=== PATIENT | female | born 1990 | race African-American/Black ===

== ENCOUNTER 2016-04-05 18:05 | Emergency (ER) | payer OTHER ==
[~2016-04-05] VITALS: Ht 177.8 cm; Wt 104.8 kg
[~2016-04-05 18:05] MED LIST: AMOXICILLIN500 MG ORAL; CYCLOBENZAPRINE10 MG ORAL; IBUPROFEN600 MG ORAL; LEVAQUIN500 MG ORAL; MEDROL4 MG ORAL; NKM
--- NOTE | 2016-04-05 18:36 | Emergency Room Report ---
History of Present Illness General Chief Complaint: Earache Present Illness HPI 25 YO Female presents to the ED c/o Pt. presents to the ED c/o Left ear pain, sore throat, nonproductive cough and dysuria x 4 day(s). denies hematuria, frequency, vaginal d/c or itching. denies hx of STI, denies abdominal pain, constipation or diarrhea. reports subjective fevers and chills, denies back pain. denies swollen tender lymph nodes. pt. states she is UTD with vaccinations. Denies numbness tingling or loss of sensation or gross motor movements of the extremities, incontinence of bowel or bladder. Denies CP, Palpitations, LOC, AMS, dizziness, Changes in Vision, Sensation, paresthesias, or a sudden severe headache. Allergies: Coded Allergies: No Known Allergies (Unverified , 06/25/15) Patient History Past Medical History: see triage record Past Surgical History: none Pertinent Family History: none Last Menstrual Period: 03/11/16 Now: No Immunizations: UTD Reviewed Nursing Documentation: PMH: Agreed, PSxH: Agreed Nursing Documentation-PMH Hx Cardiac Problems: No Hx Cancer: No Hx Gastrointestinal Problems: No Hx Neurological Problems: No Review of Systems All Other Systems: negative except mentioned in HPI Physical Exam Vital Signs Date Time Temp Pulse Resp B/P Pulse Ox O2 Delivery O2 Flow Rate FiO2 04/05/16 18:10 98.4 104 17 119/73 97 Room Air Sp02 EP Interpretation: reviewed, abnormal - tachycardic at 108 General Appearance: no apparent distress, alert, GCS 15, non-toxic Head: normocephalic, atraumatic Eyes: bilateral eye PERRL, bilateral eye normal inspection ENT: hearing grossly normal, normal pharynx, no angioedema, normal voice, pharyngeal erythema, other - left TM is erythematous and bulging. Neck: full range of motion, no meningismus, no bony tend, supple/symm/no masses Respiratory: chest non-tender, lungs clear, normal breath sounds, speaking full sentences Cardiovascular #1: regular rate, rhythm, no edema Rectal: deferred Genitourinary: normal inspection, no CVA tenderness Musculoskeletal: back normal, gait/station normal, normal range of motion, non- tender, no calf tenderness Neurologic: alert, oriented x3, responsive, motor strength/tone normal, sensory intact, speech normal Psychiatric: judgement/insight normal, memory normal, mood/affect normal, no suicidal/homicidal ideation Skin: normal color, no rash, warm/dry, well hydrated Lymphatic: no adenopathy Medical Decision Making PA Attestation Dr. Whitmore is my supervising Physician whom patient management has been discussed with. Diagnostic Impression: Primary Impression: Otitis media of left ear Qualified Codes: H66.92 - Otitis media, unspecified, left ear Additional Impressions: Acute pharyngitis Qualified Codes: J02.9 - Acute pharyngitis, unspecified Urinary tract infection Qualified Codes: N30.00 - Acute cystitis without hematuria ER Course Pt. presents to the ED c/o Left ear pain, sore throat, non productive cough and dysuria x 4 day(s) Ddx considered but are not limited to OM, OE, mastoiditis, TM perforation, FB, URI, pharyngitis, UTI, Vital signs: are WNL, pt. is afebrile H&PE are most consistent with otitis media ORDERS: -Hcg: Negative UA: evidence of UTI ED INTERVENTIONS: None required at this time. DISCHARGE: At this time pt. is stable for d/c to home. With PO ABX. Will provide printed patient care instructions, and any necessary prescriptions. Care plan and follow up instructions have been discussed with the patient prior to discharge. Labs Test 04/05/16 18:18 Urine Color Yellow Urine Appearance Slightly cloudy Urine pH 6 (4.5-8.0) Urine Specific [place] 1.010 (1.005-1.035) Urine Protein Negative (NEGATIVE) Urine Glucose (UA) Negative (NEGATIVE) Urine Ketones Negative (NEGATIVE) Urine Occult Blood Negative (NEGATIVE) Urine Nitrite Negative (NEGATIVE) Urine Bilirubin Negative (NEGATIVE) Urine Urobilinogen Normal MG/DL (0.0-1.0) Urine Leukocyte Esterase 2+ (NEGATIVE) Urine RBC 0-2 /HPF (0 - 2) Urine WBC 5-10 /HPF (0 - 2) Urine Squamous Epithelial Cells Many /LPF (NONE/OCC) Urine Bacteria Few /HPF (NONE) Urine HCG, Qualitative Negative Last Vital Signs Date Time Temp Pulse Resp B/P Pulse Ox O2 Delivery O2 Flow Rate FiO2 04/05/16 18:10 98.4 104 17 119/73 97 Room Air Disposition: HOME, SELF-CARE Condition: Stable Scripts Nitrofurantoin Monohyd/M-Cryst* (MACROBID 100 MG*) 100 Mg Capsule 100 MG ORAL EVERY 12 HOURS for 5 Days, #10 CAP Prov: Josy Fierro 04/05/16 D-Methorphan Hb/Prometh Hcl* (PROMETHAZINE-DM SYRUP*) 118 Ml Syrup 5 ML ORAL Q6H Y for For Cough, #118 ML 0 Refills Prov: Josy Fierro 04/05/16 Acetaminophen* (TYLENOL EXTRA STRENGTH*) 500 Mg Tablet 500 MG ORAL Q6H, #30 TAB 0 Refills Prov: Josy Fierro 04/05/16 Amoxicillin/Potassium Clav 875-125* (AUGMENTIN 875-125 TABLET*) 1 Each Tablet 1 TAB ORAL TWICE A DAY for 10 Days, #20 TAB Prov: Josy Fierro 04/05/16 Patient Instructions: Otitis Media, Adult, [id number], Pharyngitis, Easy-to- Read Additional Instructions: Take medications as directed. Follow up with PCP in 3-5 days Return sooner to ED if new symptoms occur, or current symptoms become worse. Josy Fierro Apr 05, 2016 18:36
[2016-04-05] MEDS ORDERED: Ketorolac 60mg Inj IM ONE ×2 (19:15)
[2016-04-05 19:19] VITALS: BP 115/70
[2016-04-05] MEDS ORDERED: Dexamethasone 4mg/ml vial IM ONE (19:30)
[2016-04-05 19:34] LABS: APPEARANCE,URINE SLIGHTLY CLOUDY; KETONES,URINE NEGATIVE (NEGATIVE); LEUKOCYTE ESTERASE ,URINE 2+ (NEGATIVE); NITRITE,URINE NEGATIVE (NEGATIVE); PH,URINE 6 (4.5-8.0); PROTEIN,URINE NEGATIVE (NEGATIVE); UROBILINOGEN,URINE NORMAL MG/DL (0.0-1.0)
[2016-04-05] MEDS ORDERED: TYLENOL EXTRA500 MG ORAL (19:34)
[2016-04-05] MEDS ORDERED: AUGMENTIN 875-1 EAC1 ORAL (19:34)
[2016-04-05] MEDS ORDERED: PROMETHAZINE-D118 ML ORAL (19:34)
[2016-04-05 19:55] LABS: BACTERIA,URINE FEW /HPF; RBC,URINE 0-2 /HPF (0 - 2); SQUAMOUS EPITHELIAL CELL,UR MANY /LPF (NONE/OCC)
[2016-04-05] MEDS ORDERED: NITROFURANTOIN100 M2 ORAL (19:58)
[2016-04-05 20:04] VITALS: BP 115/70
== END 2016-04-05 20:06 | disposition home or self-care (01) ==
LOC: EMR 18:35
DX: H66.92 Otitis media, unspecified, left ear (principal); J02.9 Acute pharyngitis, unspecified; N30.00 Acute cystitis without hematuria
CPT/HCPCS: 81003; 81025; 96372; 99284; J1100

== ENCOUNTER 2016-04-10 11:51 | Emergency (ER) | payer OTHER ==
[~2016-04-10] VITALS: Ht 177.8 cm; Wt 104.8 kg
[~2016-04-10 11:51] MED LIST changes: +AUGMENTIN 875-1 EAC1 ORAL; +NITROFURANTOIN100 M2 ORAL; +PROMETHAZINE-D118 ML ORAL; +TYLENOL EXTRA500 MG ORAL
[2016-04-10] MEDS ORDERED: AZITHROMYCIN250 MG ORAL (12:07)
[2016-04-10 12:25] VITALS: BP 120/76
[2016-04-10 12:35] VITALS: BP 120/76
--- NOTE | 2016-04-10 12:54 | Emergency Room Report ---
History of Present Illness General Chief Complaint: General Complaint Source: Patient Present Illness HPI Patient presents emergency department today complaining of sinus pain. Patient states that she develop acute onset of cough congestion over last couple weeks with worsening sinus pain on the left side and ear pain. She was seen in given amoxicillin which caused a rash. She came in for evaluation. She denies any fever chest pain shortness breath or so complains of left facial pain and congestion and sore throat. No complaint or noted. Symptoms noted to be moderate to severe. Symptoms have been going on for over 2 weeks now.No other modifying factors. No other associated signs and symptoms. No other complaints were noted. Allergies: Coded Allergies: PENICILLINS (Verified Allergy, Unknown, 04/10/16) Uncoded Allergies: AMOXILLINS (Allergy, Unknown, 04/10/16) Patient History Past Medical History: none Past Surgical History: none Pertinent Family History: none Social History: Denies: alcohol use, drug use, smoking Last Menstrual Period: 04/07/2016 Reviewed Nursing Documentation: PMH: Agreed, PSxH: Agreed Nursing Documentation-PMH Past Medical History: No Stated History Hx Cardiac Problems: No Hx Cancer: No Hx Gastrointestinal Problems: No Hx Neurological Problems: No Review of Systems All Other Systems: negative except mentioned in HPI Physical Exam Vital Signs Date Time Temp Pulse Resp B/P Pulse Ox O2 Delivery O2 Flow Rate FiO2 04/10/16 12:03 98.6 96 18 120/76 98 Room Air Sp02 EP Interpretation: reviewed, normal General Appearance: normal inspection, well appearing, no apparent distress, alert Head: atraumatic Eyes: bilateral eye normal inspection ENT: hearing grossly normal, normal voice, moist mucus membranes, pharyngeal erythema, other - sinus tenderness to percussion left face Neck: normal inspection, full range of motion, supple, no bony tend Respiratory: normal inspection, lungs clear, normal breath sounds, no respiratory distress, no retraction, no wheezing Cardiovascular #1: regular rate, rhythm, no edema Gastrointestinal: normal inspection, normal bowel sounds, non tender, soft, no guarding, no hernia Genitourinary: no CVA tenderness Musculoskeletal: normal inspection, back normal, normal range of motion Neurologic: normal inspection, alert, responsive, speech normal Psychiatric: normal inspection, judgement/insight normal, mood/affect normal Skin: normal inspection, normal color, no rash Medical Decision Making Diagnostic Impression: Primary Impression: Sinusitis, acute ER Course Patient presents emergency department today complaining of cough, nasal congestion sinus pain, and sore throat. Differential into considerations include sinusitis, allergic rhinitis, seasonal allergies just to name a few. Given patient's presentation I felt the patient likely has sinusitis. I felt the patient would benefit from antibiotics. Patient is given a prescription for antibiotics. Patient is advised to follow up with primary doctor in 2-3 days and return the emergency room for any worsening symptoms and as needed. Antibiotics were provided because this is considered to be a complex sinusitis and unlikely to viral given that has been on for close to 2 weeks. Last Vital Signs Date Time Temp Pulse Resp B/P Pulse Ox O2 Delivery O2 Flow Rate FiO2 04/10/16 12:35 98.6 96 18 120/76 98 Room Air Status: improved Disposition: HOME, SELF-CARE Condition: Stable Scripts Azithromycin* (ZITHROMAX*) 250 Mg Tablet 250 MG ORAL DAILY, #6 TAB 0 Refills Take two tablets by mouth today, then take one tablet by mouth daily for four days Prov: KOBY ZEE M.D. 04/10/16 Referrals: [facility] (PCP) Patient Instructions: Sinusitis, Adult, [id number] KOBY ZEE M.D. Apr 10, 2016 12:53
== END 2016-04-10 12:35 | disposition home or self-care (01) ==
LOC: EMR 12:05
DX: J01.90 Acute sinusitis, unspecified (principal); Z88.0 Allergy status to penicillin; Z88.1 Allergy status to other antibiotic agents
CPT/HCPCS: 99283

== ENCOUNTER 2016-06-09 23:10 | Emergency (ER) | payer OTHER ==
[~2016-06-09] VITALS: Ht 177.8 cm; Wt 103.4 kg
[~2016-06-09 23:10] MED LIST changes: +AZITHROMYCIN250 MG ORAL
[2016-06-09 23:42] VITALS: BP 137/84
[2016-06-09 23:49] LABS: APPEARANCE,URINE CLEAR; KETONES,URINE 1+ (NEGATIVE); LEUKOCYTE ESTERASE ,URINE 2+ (NEGATIVE); NITRITE,URINE NEGATIVE (NEGATIVE); PH,URINE 6 (4.5-8.0); PROTEIN,URINE 1+ (NEGATIVE); UROBILINOGEN,URINE 4 MG/DL (0.0-1.0)
[2016-06-10 00:07] LABS: BACTERIA,URINE FEW /HPF; RBC,URINE 0-2 /HPF (0 - 2); SQUAMOUS EPITHELIAL CELL,UR FEW /LPF (NONE/OCC)
--- NOTE | 2016-06-10 00:25 | Emergency Room Report ---
History of Present Illness General Chief Complaint: Pelvic Pain Source: Patient Present Illness HPI Is a 25-year-old female who has a history of ectopic was in the past. Her last menstrual period was May 07. She presents with vaginal spotting and cramping pain. Onset for last couple days. No fever or chills. No discharge. No dysuria frequency. No other complaint. Allergies: Coded Allergies: PENICILLINS (Verified Allergy, Unknown, 06/09/16) Uncoded Allergies: AMOXILLINS (Allergy, Unknown, 04/10/16) Patient History Past Medical History: see triage record, old chart reviewed Past Surgical History: other Pertinent Family History: none Social History: Denies: smoking Last Menstrual Period: may 07 : 4 Para: 1 Immunizations: other Reviewed Nursing Documentation: PMH: Agreed, PSxH: Agreed Nursing Documentation-PMH Past Medical History: No History, Except For Hx Cardiac Problems: No - Ectopic July 2015 Hx Cancer: No Hx Gastrointestinal Problems: No Hx Neurological Problems: No Review of Systems Eye: Denies: blurred vision, eye pain ENT: Denies: ear pain, nose congestion, throat swelling Respiratory: Denies: cough, shortness of breath Cardiovascular: Denies: chest pain, palpitations Gastrointestinal: Denies: abdominal pain, diarrhea, nausea, vomiting Musculoskeletal: Denies: back pain, joint pain Skin: Denies: rash Neurological: Denies: headache, numbness Endocrine: Denies: increased thirst, increased urine Hematologic/Lymphatic: Denies: easy bruising All Other Systems: negative except mentioned in HPI Physical Exam Vital Signs Date Time Temp Pulse Resp B/P Pulse Ox O2 Delivery O2 Flow Rate FiO2 06/09/16 23:20 98.2 98 16 137/84 99 Room Air vitals normal Sp02 EP Interpretation: reviewed, normal General Appearance: well appearing, no apparent distress, alert Head: normocephalic, atraumatic Eyes: bilateral eye EOMI, bilateral eye PERRL ENT: hearing grossly normal, normal pharynx Neck: full range of motion, supple, no meningismus Respiratory: chest non-tender, lungs clear, normal breath sounds Cardiovascular #1: regular rate, rhythm, no murmur Gastrointestinal: normal bowel sounds, non tender, no mass, no organomegaly, no bruit, non-distended Genitourinary: other - Pelvic exam done with female nurse as machine shop helper. External exam normal. Internal exam showed no bleeding. Minimal tenderness at the os. No cervical motion tenderness. No adnexal tenderness. Musculoskeletal: back normal, gait/station normal, normal range of motion Neurologic: alert, oriented x3 Psychiatric: mood/affect normal Skin: warm/dry Medical Decision Making Diagnostic Impression: Primary Impression: Threatened ER Course Patient presents with a threatened miscarriage. Per chef broiler or fry, very early . She's only about 3-4 weeks by ultrasound. He see what looked like a gestational sac in the uterus. Nothing in the adnexal area. Patient blood type in the past B+. We'll discharge home with reassurance and followup. CT/MRI/US Diagnostic Results CT/MRI/US Diagnostic Results : Imaging Test Ordered: Pelvic ultrasound Impression early gestational sac. As read by chef broiler or fry. Last Vital Signs Date Time Temp Pulse Resp B/P Pulse Ox O2 Delivery O2 Flow Rate FiO2 06/09/16 23:42 98.2 16 137/84 99 Room Air 06/09/16 23:20 98 Status: improved Disposition: HOME, SELF-CARE Condition: Stable Referrals: [facility] (PCP) Additional Instructions: Followup with your DrKeron in 7 days for repeat blood test and . Return for worsening symptoms. Recommend [id number] vitamins. MARIVEL GALLARDO M.D. Jun 10, 2016 00:25
[2016-06-10 00:47] VITALS: BP 118/78
[2016-06-10 01:03] LABS: ANION GAP 13 (5-15); BASOPHILS % (AUTO) 0.9 % (0.0-2.0); CALCIUM 9.1 mg/dL (8.6-10.2); CARBON DIOXIDE 22 mEQ/L (20-30); CHLORIDE 104 mEQ/L (98-107); CREATININE 0.8 mg/dL (0.5-0.9); EOSINOPHILS % (AUTO) 3.8 % (0.0-3.0); GLOMERULAR FILTRATION RATE > 60 mL/min (>60); HEMOLYSIS 73; LYMPHOCYTES % (AUTO) 40.8 % (20.0-45.0); MEAN CORPUSCULAR HEMOGLOBIN 30.8 PG (27.0-31.0); MEAN CORPUSCULAR HGB CONC 34.5 G/DL (32.0-36.0); MEAN CORPUSCULAR VOLUME 89 FL (80-99); MEAN PLATELET VOLUME 6.4 FL (6.5-10.1); MONOCYTES % (AUTO) 7.6 % (1.0-10.0); NEUTROPHILS % (AUTO) 46.8 % (45.0-75.0); PLATELET COUNT 267 K/UL (150-450); POTASSIUM 4.2 mEQ/L (3.4-4.9); RED BLOOD COUNT 4.71 M/UL (4.20-5.40); RED CELL DISTRIBUTION WIDTH 12.8 % (11.6-14.8); SODIUM 139 mEQ/L (135-145); WHITE BLOOD COUNT 6.8 K/UL (4.8-10.8)
[2016-06-10 02:49] VITALS: BP 122/82
--- NOTE | 2016-06-11 14:57 | Diagnostic Imaging Report ---
Indication: , Spotting, patient Technique: Transabdominal and transvaginal images Comparison: 07/05/2015 Findings: Uterus measures 8.3 cm length by 6.2 cm AP. Within the endometrium, there is a small fluid collection with only equivocal surrounding decidual reaction. This measures 8 x 6 mm. No yolk sac, pole, or heart activity demonstrated. Endometrium measures 5 mm thick. No myometrial abnormality. Left ovary measures 2.6 cm in length. The right ovary could not be visualized. There is trace free cul-de-sac fluid Impression: Fluid collection in the uterus, possibly but not definitively an early intrauterine . This could also represent days of the gestational sac of ectopic , and ectopic therefore not excludable. Residual fluid of a spontaneous also not excludable. Recommend correlation with serial beta hCGs and clinical findings, consider followup sonography as clinically indicated Trace free cul-de-sac fluid, likely physiologic Note inability to visualize the right ovary. No gross adnexal mass
== END 2016-06-10 02:50 | disposition home or self-care (01) ==
LOC: EMR 23:33
DX: O20.0 Threatened abortion (principal); Z3A.01 Less than 8 weeks gestation of pregnancy; Z88.1 Allergy status to other antibiotic agents; Z88.0 Allergy status to penicillin
CPT/HCPCS: 36415; 76856; 80048; 81003; 81025; 84702; 85025; 87210; 99284

== ENCOUNTER 2016-06-25 19:19 | Emergency (ER) | payer OTHER ==
[~2016-06-25] VITALS: Ht 177.8 cm; Wt 104.3 kg
[2016-06-25 19:43] VITALS: BP 124/77
[2016-06-25 20:14] LABS: BASOPHILS % (AUTO) 1.5 % (0.0-2.0); EOSINOPHILS % (AUTO) 3.1 % (0.0-3.0); LYMPHOCYTES % (AUTO) 35.7 % (20.0-45.0); MEAN CORPUSCULAR HEMOGLOBIN 32.8 PG (27.0-31.0); MEAN CORPUSCULAR VOLUME 89 FL (80-99); MEAN PLATELET VOLUME 5.7 FL (6.5-10.1); MONOCYTES % (AUTO) 8.2 % (1.0-10.0); NEUTROPHILS % (AUTO) 51.5 % (45.0-75.0); PLATELET COUNT 246 K/UL (150-450); RED BLOOD COUNT 4.32 M/UL (4.20-5.40); RED CELL DISTRIBUTION WIDTH 11.7 % (11.6-14.8); WHITE BLOOD COUNT 7.3 K/UL (4.8-10.8)
[2016-06-25 20:25] LABS: APPEARANCE,URINE CLEAR; KETONES,URINE NEGATIVE (NEGATIVE); LEUKOCYTE ESTERASE ,URINE 2+ (NEGATIVE); NITRITE,URINE NEGATIVE (NEGATIVE); PH,URINE 6 (4.5-8.0); PROTEIN,URINE NEGATIVE (NEGATIVE); UROBILINOGEN,URINE NORMAL MG/DL (0.0-1.0)
[2016-06-25 20:36] LABS: ALANINE AMINOTRANSFERASE 14 U/L (3-33); ALBUMIN/GLOBULIN RATIO 1.1 (1.0-2.7); ANION GAP 17 (5-15); ASPARTATE AMINO TRANSFERASE 21 U/L (5-40); CALCIUM 9.3 mg/dL (8.6-10.2); CARBON DIOXIDE 21 mEQ/L (20-30); CHLORIDE 95 mEQ/L (98-107); CREATININE 0.9 mg/dL (0.5-0.9); GLOMERULAR FILTRATION RATE > 60 mL/min (>60); HEMOLYSIS 8; LIPASE 28 U/L (< 60); SODIUM 133 mEQ/L (135-145); TOTAL PROTEIN 6.9 g/dL (6.6-8.7)
[2016-06-25 20:36] LABS: BACTERIA,URINE FEW /HPF; RBC,URINE 0-2 /HPF (0 - 2); SQUAMOUS EPITHELIAL CELL,UR MANY /LPF (NONE/OCC)
--- NOTE | 2016-06-25 20:44 | Emergency Room Report ---
History of Present Illness General Chief Complaint: Abdominal Pain Source: Patient Present Illness HPI 25 YO Female presents to the ED c/o vaginal bleeding: x 2 day(s) amount: spotting when wiping after using the restroom. Pt is , Had US done by OBGYN @ 5 weeks, IUP with subchorionic hemorrhage. pt. denies bleeding and pain until now ( approx 8 weeks). Denies N/V/ diarrhea, reports constipation, and left sided low back pain. pt. also has hx of sciatica. pt. denies trauma or fall. Pt reports she just recently finished a course of abx for UTI. Denies CP, Palpitations, LOC, AMS, dizziness, Changes in Vision, Sensation, paresthesias, or a sudden severe headache. Allergies: Coded Allergies: PENICILLINS (Verified Allergy, Unknown, 06/09/16) Uncoded Allergies: AMOXILLINS (Allergy, Unknown, 04/10/16) Patient History Past Medical History: see triage record Past Surgical History: none Pertinent Family History: none Last Menstrual Period: may 07 Now: Yes - 7 to 8 weeks : 4 Reviewed Nursing Documentation: PMH: Agreed, PSxH: Agreed Nursing Documentation-PMH Past Medical History: No Stated History Hx Cardiac Problems: No - Ectopic July 2015 Hx Cancer: No Hx Gastrointestinal Problems: No Hx Neurological Problems: No Review of Systems All Other Systems: negative except mentioned in HPI Physical Exam Vital Signs Date Time Temp Pulse Resp B/P Pulse Ox O2 Delivery O2 Flow Rate FiO2 06/25/16 19:29 98.1 94 18 124/77 98 Room Air Sp02 EP Interpretation: reviewed, normal General Appearance: no apparent distress, alert, GCS 15, non-toxic Head: normocephalic, atraumatic Eyes: bilateral eye PERRL, bilateral eye normal inspection ENT: hearing grossly normal, normal pharynx, no angioedema, normal voice Neck: full range of motion, supple/symm/no masses Respiratory: chest non-tender, lungs clear, normal breath sounds, speaking full sentences Cardiovascular #1: regular rate, rhythm, no edema Gastrointestinal: normal bowel sounds, non tender, soft, no guarding, no rebound Rectal: deferred Genitourinary: normal inspection, CVA tenderness (L) Musculoskeletal: back normal, gait/station normal, normal range of motion, non- tender, tender - left paraspinal TTP, no obvious deformity Neurologic: alert, oriented x3, responsive, motor strength/tone normal, sensory intact, speech normal Psychiatric: judgement/insight normal, memory normal, mood/affect normal Skin: normal color, no rash, warm/dry, well hydrated Lymphatic: no adenopathy Medical Decision Making PA Attestation Dr. Corrales is my supervising Physician whom patient management has been discussed with. Diagnostic Impression: Primary Impression: Subchorionic bleed Qualified Codes: O41.8X10 - Other specified disorders of amniotic fluid and membranes, first trimester, not applicable or unspecified ER Course Pt. presents to the ED c/o vaginal bleeding: x 2 day(s) amount: spotting when wiping after using the restroom. had US done by OBCHRISTINAN @ 5 weeks, IUP with subchorionic hemorrhage. pt. denies bleeding and pain until now ( approx 8 weeks ). Ddx considered but are not limited to: Fibroid, ectopic , Fibroid, Spontaneous ,subchorionic hemorrhage. Vital signs: are WNL, pt. is afebrile H&PE are most consistent with: spotting during early , threatened with hx of subchorionic hemorrhage. ORDERS: - Pt. declines pelvic examination, and is requesting trans-abdominal US , pt states she has cervical tenderness. d/w pt. that I can not guarantee that the US hearing aid repair technician will do trans-abdominal but that I will let her know about the cervical tenderness. -CBC: unremarkable -CMP: unremarkable - Lipase: WNL -UA: unremarkable -Urine hcg- Positive -serum Hcg Quant: [id number] - Blood/RH type and screen- see attached labs -Pelvic US complete- IUP approximately 7weeks, with subchorionic hemorrhage, no free fluid, no ovarian masses per US preliminary report. ED INTERVENTIONS: None at this time. DISCHARGE: At this time pt. is stable for d/c to home. Will provide printed patient care instructions, and any necessary prescriptions. Care plan and follow up instructions have been discussed with the patient prior to discharge. Labs Test 06/25/16 19:50 06/25/16 19:55 Urine Color Pale yellow Urine Appearance Clear Urine pH 6 (4.5-8.0) Urine Specific [place] 1.020 (1.005-1.035) Urine Protein Negative (NEGATIVE) Urine Glucose (UA) Negative (NEGATIVE) Urine Ketones Negative (NEGATIVE) Urine Occult Blood Negative (NEGATIVE) Urine Nitrite Negative (NEGATIVE) Urine Bilirubin Negative (NEGATIVE) Urine Urobilinogen Normal MG/DL (0.0-1.0) Urine Leukocyte Esterase 2+ (NEGATIVE) Urine RBC 0-2 /HPF (0 - 2) Urine WBC 2-4 /HPF (0 - 2) Urine Squamous Epithelial Cells Many /LPF (NONE/OCC) Urine Bacteria Few /HPF (NONE) Urine HCG, Qualitative Positive White Blood Count 7.3 K/UL (4.8-10.8) Red Blood Count 4.32 M/UL (4.20-5.40) Hemoglobin 14.2 G/DL (12.0-16.0) Hematocrit 38.2 % (37.0-47.0) Mean Corpuscular Volume 89 FL (80-99) Mean Corpuscular Hemoglobin 32.8 PG (27.0-31.0) Mean Corpuscular Hemoglobin Concent 37.0 G/DL (32.0-36.0) Red Cell Distribution Width 11.7 % (11.6-14.8) Platelet Count 246 K/UL (150-450) Mean Platelet Volume 5.7 FL (6.5-10.1) Neutrophils (%) (Auto) 51.5 % (45.0-75.0) Lymphocytes (%) (Auto) 35.7 % (20.0-45.0) Monocytes (%) (Auto) 8.2 % (1.0-10.0) Eosinophils (%) (Auto) 3.1 % (0.0-3.0) Basophils (%) (Auto) 1.5 % (0.0-2.0) Sodium Level 133 mEQ/L (135-145) Potassium Level 4.0 mEQ/L (3.4-4.9) Chloride Level 95 mEQ/L (98-107) Carbon Dioxide Level 21 mEQ/L (20-30) Anion Gap 17 (5-15) Blood Urea Nitrogen 8 mg/dL (7-23) Creatinine 0.9 mg/dL (0.5-0.9) Estimat Glomerular Filtration Rate > 60 mL/min (>60) Glucose Level 97 mg/dL (74-106) Calcium Level 9.3 mg/dL (8.6-10.2) Total Bilirubin 0.2 mg/dL (0.0-1.2) Aspartate Amino Transf (AST/SGOT) 21 U/L (5-40) Alanine Aminotransferase (ALT/SGPT) 14 U/L (3-33) Alkaline Phosphatase 58 U/L (35-104) Total Protein 6.9 g/dL (6.6-8.7) Albumin 3.7 g/dL (3.5-5.2) Globulin 3.2 g/dL Albumin/Globulin Ratio 1.1 (1.0-2.7) Lipase 28 U/L (< 60) Human Chorionic Gonadotropin, Quant 29159 mIU/mL Last Vital Signs Date Time Temp Pulse Resp B/P Pulse Ox O2 Delivery O2 Flow Rate FiO2 06/25/16 19:43 98.1 91 18 124/77 98 Room Air Disposition: HOME, SELF-CARE Condition: Stable Patient Instructions: Subchorionic Hematoma Additional Instructions: Take any previously prescribed medications as directed. Follow up with OBGYN within 3 days Return sooner to ED if new symptoms occur, or current symptoms become worse. - Please note that this Emergency Department Report was dictated using [employer] theory professor technology software, occasionally this can lead to erroneous entry secondary to interpretation by the dictation equipment. Josy Fierro Jun 25, 2016 20:44
[2016-06-25 21:30] VITALS: BP 131/75
[2016-06-25] MEDS ORDERED: TYLENOL EXTRA500 MG ORAL (22:17)
[2016-06-25 22:30] VITALS: BP 131/75
--- NOTE | 2016-06-26 11:55 | Diagnostic Imaging Report ---
Indication: Pelvic pain, vaginal spotting, Technique: Transabdominal and transvaginal images Comparison: 06/10/2016 Findings: Uterus measures 11 cm length by 5.4 cm AP. Within the endometrium, there is a gestational sac. This contains a pole which demonstrates a crown-rump length of 11.5 mm, corresponding to an estimated gestational age 7 weeks 2 days. Estimated date of delivery is 02/11/2017. Estimated date of delivery by dates is 02/03/2017. There is positive heart activity, heart rate 144 beats per minute. Endings probably represent appropriate interval growth since the prior study, although dates could not be measured at that time There is questionably some mixed echogenicity material adjacent to the gestational sac which could represent a small subchorionic hemorrhage. Yolk sac is also demonstrated. There is a small cervical nabothian cyst. The left ovary measures 3.7 cm length. The right ovary measures 3.8 cm length, contains what may be a 2.5 cm corpus luteum. Normal ovarian Doppler flow is demonstrated bilaterally. No adnexal mass. No free cul-de-sac fluid. Impression: 7 week 2 day single live intrauterine . Equivocal small subchorionic hemorrhage No other unusual features. Negative for adnexal mass
== END 2016-06-25 22:30 | disposition home or self-care (01) ==
LOC: EMR 19:46
DX: O20.8 Other hemorrhage in early pregnancy (principal); Z3A.01 Less than 8 weeks gestation of pregnancy; O26.891 Other specified pregnancy related conditions, first trimester; N88.8 Other specified noninflammatory disorders of cervix uteri; Z88.0 Allergy status to penicillin
CPT/HCPCS: 36415; 76801; 76830; 80053; 81003; 81025; 83690; 84702; 85025; 86850; 86900; 86901; 99284

== ENCOUNTER 2016-11-12 18:32 | Emergency (ER) | payer MEDICAID, OTHER ==
[~2016-11-12] VITALS: Ht 177.8 cm; Wt 113.4 kg
--- NOTE | 2016-11-12 19:40 | Emergency Room Report ---
History of Present Illness General Chief Complaint: Complications Source: Patient Present Illness HPI 26 YO Female presents to the ED c/O presents to the ED c/o decreased movement x 2 days, denies trauma or fall, denies abdominal pain or vaginal bleeding/discharge. denies N/V/F/C, abdominal tenderness, cramping, contractions or known complications thus far. Pt reports itching and increased lacrimation to the right eye, denies erythema, purulent d/c, eye pain , or crusting. pt. reports hx of allergic symptoms of the eyes with intermittent swelling of the lid denies fb sensation or scratching sensation in the eye, denies photophobia or floaters. denies recent URI, or nasal congestion/ rhinorrhea. Denies CP, Palpitations, LOC, AMS, dizziness, Changes in Vision, Sensation, paresthesias, or a sudden severe headache. Allergies: Coded Allergies: PENICILLINS (Verified Allergy, Unknown, 06/09/16) Uncoded Allergies: AMOXILLINS (Allergy, Unknown, 04/10/16) Patient History Past Medical History: see triage record Past Surgical History: none Pertinent Family History: none Last Menstrual Period: 05/07/2016 Now: Yes : 5 Para: 1 Immunizations: UTD Reviewed Nursing Documentation: PMH: Agreed, PSxH: Agreed Nursing Documentation-PMH Past Medical History: No History, Except For Hx Cardiac Problems: No - Ectopic July 2015 Hx Cancer: No Hx Gastrointestinal Problems: No Hx Neurological Problems: No Review of Systems All Other Systems: negative except mentioned in HPI Physical Exam Vital Signs Date Time Temp Pulse Resp B/P (MAP) Pulse Ox O2 Delivery O2 Flow Rate FiO2 11/12/16 19:11 98.1 99 20 109/80 98 Room Air Sp02 EP Interpretation: reviewed, normal General Appearance: no apparent distress, alert, GCS 15, non-toxic Head: normocephalic, atraumatic Eyes: right eye other - mild increased lacrimation to the right eye, no erythema, no evidence of d/c. no appreciable lid swelling. , bilateral eye normal inspection, bilateral eye PERRL, bilateral eye EOMI ENT: hearing grossly normal, normal voice Neck: full range of motion Respiratory: lungs clear, normal breath sounds, speaking full sentences Cardiovascular #1: regular rate, rhythm, no edema Gastrointestinal: normal bowel sounds, non tender, soft, no guarding, no rebound, other - gravid, fundal height palpated in the epigastric area consistent with 27 weeks. Genitourinary: normal inspection Musculoskeletal: back normal, gait/station normal, normal range of motion, non- tender Neurologic: alert, oriented x3, responsive, motor strength/tone normal, sensory intact, normal gait, speech normal Psychiatric: judgement/insight normal, memory normal, mood/affect normal Skin: normal color, no rash, warm/dry, well hydrated Medical Decision Making PA Attestation Dr. Whitmore is my supervising Physician whom patient management has been discussed with. Diagnostic Impression: Primary Impression: Decreased movement in Qualified Codes: O36.8130 - Decreased movements, third trimester, not applicable or unspecified Additional Impression: Conjunctivitis Qualified Codes: H10.11 - Acute atopic conjunctivitis, right eye ER Course 26 YO Female presents to the ED c/O presents to the ED c/o decreased movement x 2 days, denies trauma or fall, denies abdominal pain or vaginal bleeding/discharge. denies N/V/F/C, abdominal tenderness, cramping, contractions or known complications thus far. Pt reports itching and increased lacrimation to the right eye, denies erythema, purulent d/c, eye pain , or crusting. pt. reports hx of allergic symptoms of the eyes with intermittent swelling of the lid denies fb sensation or scratching sensation in the eye, denies photophobia or floaters. denies recent URI, or nasal congestion/ rhinorrhea. Denies CP, Palpitations, LOC, AMS, dizziness, Changes in Vision, Sensation, paresthesias, or a sudden severe headache. Ddx considered but are not limited to: Demise, threatened , Spontaneous ,pre-term labor just to name a few Vital signs: are WNL, pt. is afebrile H&PE are most consistent with: obvious gravid normal PE of mother, will assess HR, pt. will require monitoring. ORDERS: -Un-official Bed-side US: HR 128 BPM - Pt declines work up and transport to OB facility. ED INTERVENTIONS: None at this time. DISPOSITION: Pt. 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 - At this time the patient is requesting to leave AGAINST MEDICAL ADVICE declining transport to appropriate facility for monitoring. I believe that this patient has the capacity to make decisions on Her own. I discussed with the patient the risks of leaving AMA. Some of these risks include delay in diagnosis and treatment, as well as worsening of symptoms, pre-term labor, demise, organ damage, and permanent disability or even of herself and unborn child. After discussing these risks with the patient. She continues to express Her want to leave AGAINST MEDICAL ADVICE. I encouraged the patient to return at any time, and that she will be welcome here in the emergency department to continue medical management and facilitation of transport to an OB facility. Last Vital Signs Date Time Temp Pulse Resp B/P (MAP) Pulse Ox O2 Delivery O2 Flow Rate FiO2 11/12/16 19:11 98.1 99 20 109/80 98 Room Air Disposition: AGAINST MEDICAL ADVICE Condition: Unknown Scripts Epinastine Hcl (EPINASTINE HCL) 5 Ml Drops 1 DROP OP BID for 5 Days, #5 ML Prov: Josy Fierro 11/12/16 Patient Instructions: Allergic Conjunctivitis, [id number], Monitoring Overview, Monitoring, Biophysical Profile, Form - Movement Counts Additional Instructions: You are leaving AMA, before results of your diagnostic lab work are available. This can cause delayed diagnosis as well as treatment, and ultimately leading up to worsening of symptoms, damage to organs, permanent disability or even . MONITORING PERFORMED BY AN OB FACILITY IS REQUIRED You are encouraged to return to the ER at any time if you want to continue your evaluation Josy Fierro Nov 12, 2016 19:40
[2016-11-12] MEDS ORDERED: EPINASTINE HCL5 ML OP (19:58)
[2016-11-12 20:25] VITALS: BP 109/80
== END 2016-11-12 20:25 | disposition left against medical advice (07) ==
LOC: EMR 19:53
DX: O36.8190 Decreased fetal movements, unspecified trimester, not applicable or unspecified (principal); O26.899 Other specified pregnancy related conditions, unspecified trimester; H10.11 Acute atopic conjunctivitis, right eye; Z88.0 Allergy status to penicillin
CPT/HCPCS: 99283

== ENCOUNTER 2017-02-28 13:49 | Emergency (ER) | payer MEDICAID ==
[~2017-02-28] VITALS: Ht 177.8 cm; Wt 113.4 kg
[~2017-02-28 13:49] MED LIST changes: +EPINASTINE HCL5 ML OP
[2017-02-28] MEDS ORDERED: Albuterol ud Inhalation HHN ONE (14:15)
[2017-02-28] MEDS ORDERED: Ipratropium 0.02% Inh Soln 2.5ml UD HHN ONE (14:15)
[2017-02-28 15:11] VITALS: BP 127/63
--- NOTE | 2017-02-28 15:19 | Emergency Room Report ---
History of Present Illness General Chief Complaint: Upper Respiratory Illness Source: Patient, Medical Record Present Illness HPI the patient is a 26-year-old female with a history of asthma presenting for shortness of breath for the past week. She also admits to subjective fever and chills. She denies any known sick contacts or recent travel. She states she ran out of albuterol. She denies other symptoms including hemoptysis, headache , myalgia Allergies: Coded Allergies: PENICILLINS (Verified Allergy, Unknown, 06/09/16) Uncoded Allergies: AMOXILLINS (Allergy, Unknown, 04/10/16) Patient History Past Medical History: see triage record Pertinent Family History: none Last Menstrual Period: 05/07/16 Reviewed Nursing Documentation: PMH: Agreed, PSxH: Agreed Nursing Documentation-PMH Past Medical History: No History, Except For Hx Cardiac Problems: No - Ectopic July 2015 Hx Cancer: No Hx Gastrointestinal Problems: No Hx Neurological Problems: No Review of Systems All Other Systems: negative except mentioned in HPI Physical Exam Vital Signs Date Time Temp Pulse Resp B/P (MAP) Pulse Ox O2 Delivery O2 Flow Rate FiO2 02/28/17 13:51 98.1 102 18 127/63 97 Room Air 02/28/17 14:15 21 Sp02 EP Interpretation: reviewed, normal General Appearance: no apparent distress, alert, GCS 15, non-toxic Head: normocephalic, atraumatic Eyes: bilateral eye normal inspection, bilateral eye PERRL ENT: hearing grossly normal, normal pharynx, no angioedema, normal voice Neck: full range of motion, supple/symm/no masses Respiratory: chest non-tender, normal breath sounds, speaking full sentences, wheezing Cardiovascular #1: regular rate, rhythm, no edema Musculoskeletal: back normal, gait/station normal, normal range of motion, non- tender Neurologic: alert, oriented x3, responsive, motor strength/tone normal, sensory intact, speech normal Psychiatric: judgement/insight normal, memory normal, mood/affect normal, no suicidal/homicidal ideation Skin: normal color, no rash, warm/dry, well hydrated Medical Decision Making PA Attestation Dr. Sunshine is my supervising physician. Patient management was discussed with my supervising physician Diagnostic Impression: Primary Impression: Bronchitis ER Course the patient is a 26-year-old female with a history of asthma presenting for shortness of breath for the past week. Differential diagnosis include but not limited to pharyngitis, sinusitis, AOM, bronchitis, PNA PE: afebrile. No tachypnea. No apparent distress. No TTP over maxillary or frontal sinuses. Lungs: diffuse wheezing. No accessory muscle use. No resp distress Heart: RRR, no abnormal heart sounds Ears: external auditory canal clear. Non erythematous. Bilat TM intact. Cone of light present bilat. No bulging of TM. No serous fluid seen. no nasal D/C Nor cervical lymphad No tonsillar exudate. Uvula midline.Oropharynx non erythematous Chest x-ray unremarkable The patient is given breathing treatments and feels much better. Lung sounds have improved The patient will be discharged home with a prescription for albuterol and tylenol. ER precautions given Chest X-Ray Diagnostic Results Chest X-Ray Diagnostic Results : Chest X-Ray Ordered: Yes # of Views/Limited/Complete: 1 View Indication: Shortness of Breath EP Interpretation: Yes PA Xray: Interpretation reviewed, by supervising MD, and agrees with findings. Interpretation: no consolidation, no effusion, no pneumothorax Impression: No acute disease Electronically Signed by: Conor Moreira PA-C Last Vital Signs Date Time Temp Pulse Resp B/P (MAP) Pulse Ox O2 Delivery O2 Flow Rate FiO2 02/28/17 15:11 98.1 18 127/63 96 Room Air 21 02/28/17 14:30 88 Status: improved Disposition: HOME, SELF-CARE Condition: Improved Scripts Acetaminophen* (TYLENOL EXTRA STRENGTH*) 500 Mg Tablet 500 MG ORAL Q8H Y for Prn Headache/Temp > 101, #30 TAB 0 Refills Prov: CONOR MOREIRA 02/28/17 Albuterol Sulfate* (PROAIR HFA*) 8.5 Gm Hfa.aer.ad 2 PUFFS INH Q6H, #8.5 GM 0 Refills Prov: CONOR MOREIRA 02/28/17 CONOR MOREIRA Feb 28, 2017 15:19
[2017-02-28] MEDS ORDERED: PROAIR HFA8.5 GM INH (15:20)
[2017-02-28] MEDS ORDERED: IBUPROFEN600 MG ORAL (15:20)
[2017-02-28] MEDS ORDERED: PROMETHAZINE-D118 ML ORAL (15:20)
[2017-02-28 15:28] VITALS: BP 118/62
[2017-02-28] MEDS ORDERED: TYLENOL EXTRA500 MG ORAL (15:29)
--- NOTE | 2017-03-01 11:38 | Diagnostic Imaging Report ---
Indication: Cough Technique: XRAY Chest 1v Comparison: None Findings: Heart size and mediastinal contours are within normal limits given technique. There is no focal consolidation, pneumothorax or pleural effusion. Osseous structures demonstrate no acute abnormality. Impression: No radiographic evidence of acute cardiopulmonary disease.
== END 2017-02-28 15:28 | disposition home or self-care (01) ==
LOC: EMR 14:30
DX: J40 Bronchitis, not specified as acute or chronic (principal); R50.9 Fever, unspecified
CPT/HCPCS: 71010; 94640; 94664; 99284

== ENCOUNTER 2017-03-28 15:36 | Emergency (ER) | payer MEDICAID, OTHER ==
[~2017-03-28] VITALS: Ht 177.8 cm; Wt 108.9 kg
[~2017-03-28 15:36] MED LIST changes: +PROAIR HFA8.5 GM INH
[2017-03-28] MEDS ORDERED: AZITHROMYCIN500 MG ORAL (16:20)
[2017-03-28] MEDS ORDERED: TYLENOL EXTRA500 MG ORAL (16:20)
--- NOTE | 2017-03-28 16:20 | Emergency Room Report ---
History of Present Illness General Chief Complaint: Flu Like Symptoms Source: Patient Present Illness HPI 26-year-old female patient presents to ER complaining of sore throat and cough with sputum. Patient reports sore throat and cough symptoms have been present for the "past few days." Patient complains of congestion in nose and throat. Patient reports pain with swallowing food; states she has been able to eat and drink during this time. Patient reports history of flulike symptoms off and on for the past 2 months. Patient denies fever, nausea, vomiting, diarrhea, vision changes, rash. Patient states she is breast-feeding and does not want to take medications that will effect breast milk. Allergies: Coded Allergies: PENICILLINS (Verified Allergy, Unknown, 06/09/16) Uncoded Allergies: AMOXILLINS (Allergy, Unknown, 04/10/16) Patient History Past Medical History: see triage record Social History: Denies: smoking, alcohol use, drug use Last Menstrual Period: 03/24/2017 Reviewed Nursing Documentation: PMH: Agreed, PSxH: Agreed Nursing Documentation-PMH Past Medical History: No Stated History Hx Cardiac Problems: No - Ectopic July 2015 Hx Cancer: No Hx Gastrointestinal Problems: No Hx Neurological Problems: No Review of Systems All Other Systems: negative except mentioned in HPI Physical Exam Vital Signs Date Time Temp Pulse Resp B/P (MAP) Pulse Ox O2 Delivery O2 Flow Rate FiO2 03/28/17 15:47 98.1 114 20 128/83 96 Room Air Sp02 EP Interpretation: reviewed, normal General Appearance: no apparent distress, alert, GCS 15, non-toxic Head: normocephalic, atraumatic Eyes: bilateral eye normal inspection, bilateral eye PERRL ENT: hearing grossly normal, normal pharynx, TMs + canals normal, uvula midline , moist mucus membranes, nasal congestion, tonsillar swelling - erythema, pharyngeal erythema, other - no exudate, no pus drainage, no hot potato voice Neck: full range of motion, supple/symm/no masses Respiratory: chest non-tender, lungs clear, normal breath sounds, no rhonchi, no respiratory distress, no accessory muscle use, no wheezing, speaking full sentences Cardiovascular #1: regular rate, rhythm Gastrointestinal: normal bowel sounds, non tender, soft, non-distended, no guarding, no rebound Musculoskeletal: back normal, digits/nails normal, gait/station normal, normal range of motion, non-tender Neurologic: alert, oriented x3, responsive, motor strength/tone normal, sensory intact, speech normal Psychiatric: mood/affect normal Skin: normal color, no rash, warm/dry, well hydrated Lymphatic: adenopathy - tonsillar Medical Decision Making PA Attestation Dr. Sunsihne is my supervising Physician whom patient management has been discussed with. Diagnostic Impression: Primary Impression: Pharyngitis ER Course Pt presents to ED c/o sore throat. DDX considered but are not limited to influenza, viral URI, strep throat, pharyngitis, tonsillitis. VITAL SIGNS patient is afebrile ORDERS: none required at this time, diagnosis is clinical ED INTERVENTIONS: none required at this time ER COURSE: Patient is resting comfortably in chair, in no acute distress, non-toxic appearing. Patient daughter is resting comfortably in her arms. Dr. Sunshine examined patient oropharynx and agrees with diagnosis and treatment. DISCHARGE: At this time pt is stable for d/c to home. -Rx given for Acetaminophen for fever/pain. -Rx provided for Azithromycin Patient to take medications as instructed. Will provide with patient care instructions and any necessary prescriptions. Care plan and follow-up instructions provided. Patient instructed to follow-up with primary care provider in 3 - 5 days. Patient questions asked and answered. ER precautions given. Patient instructed to return to ER immediately for any new or worsening of symptoms including but not limited to fever, SOB, difficulty swallowing. Last Vital Signs Date Time Temp Pulse Resp B/P (MAP) Pulse Ox O2 Delivery O2 Flow Rate FiO2 03/28/17 15:56 105 18 Room Air 03/28/17 15:47 98.1 128/83 96 Disposition: HOME, SELF-CARE Condition: Stable Scripts Acetaminophen* (TYLENOL EXTRA STRENGTH*) 500 Mg Tablet 500 MG ORAL Q6H Y for Mild Pain/Temp > 100.5 for 7 Days, #30 TAB 0 Refills Prov: Fransisco [email or web address].Jalen 03/28/17 Azithromycin (AZITHROMYCIN) 500 Mg Tablet 500 MG ORAL DAILY for 5 Days, #5 TAB Prov: Fransisco [email or web address].Jalen 03/28/17 Patient Instructions: Pharyngitis, [id number] Additional Instructions: Followup with primary care provider in 3 -5 days. Take medications as directed. Patient questions asked and answered. ER precautions given, patient instructed to return to ER immediately for any new or worsening of symptoms. Fransisco Martinez Mar 28, 2017 16:20
[2017-03-28 16:34] VITALS: BP 128/83
== END 2017-03-28 16:50 | disposition home or self-care (01) ==
LOC: EMR 16:19
DX: J02.9 Acute pharyngitis, unspecified (principal); Z88.0 Allergy status to penicillin; Z88.1 Allergy status to other antibiotic agents
CPT/HCPCS: 99284

== ENCOUNTER 2017-09-24 09:37 | Emergency (ER) | payer MEDICAID ==
[~2017-09-24] VITALS: Ht 177.8 cm; Wt 104.3 kg
[~2017-09-24 09:37] MED LIST changes: +AZITHROMYCIN500 MG ORAL
[2017-09-24] MEDS ORDERED: Acetaminophen 500mg (ES) tab ORAL ONE (09:45)
[2017-09-24 10:40] LABS: APPEARANCE,URINE TURBID; BILIRUBIN, URINE NEGATIVE (NEGATIVE); GLUCOSE, URINE (UA) NEGATIVE (NEGATIVE); KETONES,URINE 1+ (NEGATIVE); LEUKOCYTE ESTERASE ,URINE 2+ (NEGATIVE); NITRITE,URINE NEGATIVE (NEGATIVE); PH,URINE 5 (4.5-8.0); PROTEIN,URINE 2+ (NEGATIVE); UROBILINOGEN,URINE 1 MG/DL (0.0-1.0)
[2017-09-24 10:44] LABS: COLOR,URINE YELLOW
[2017-09-24 10:46] LABS: BASOPHILS % (AUTO) 1.4 % (0.0-2.0); EOSINOPHILS % (AUTO) 3.8 % (0.0-3.0); HEMATOCRIT 44.5 % (37.0-47.0); HEMOGLOBIN 15.1 G/DL (12.0-16.0); LYMPHOCYTES % (AUTO) 37.6 % (20.0-45.0); MEAN CORPUSCULAR VOLUME 87 FL (80-99); MONOCYTES % (AUTO) 4.7 % (1.0-10.0); NEUTROPHILS % (AUTO) 52.6 % (45.0-75.0); PLATELET COUNT 325 K/UL (150-450); RED BLOOD COUNT 5.11 M/UL (4.20-5.40); RED CELL DISTRIBUTION WIDTH 11.2 % (11.6-14.8); WHITE BLOOD COUNT 6.6 K/UL (4.8-10.8)
[2017-09-24 10:54] LABS: ANION GAP 10 mmol/L (5-15); BLOOD UREA NITROGEN 10 mg/dL (7-18); CALCIUM 9.6 MG/DL (8.5-10.1); CARBON DIOXIDE 24 MMOL/L (21-32); CHLORIDE 105 MMOL/L (98-107); CREATININE 0.7 MG/DL (0.55-1.30); POTASSIUM 3.9 MMOL/L (3.5-5.1); SODIUM 139 MMOL/L (136-145)
--- NOTE | 2017-09-24 10:55 | Emergency Room Report ---
History of Present Illness General Chief Complaint: Complications Source: Patient Present Illness HPI 19-year-old female presents with vaginal bleeding and pelvic cramping that started last night she reports roughly 2 pads with the bleeding, denies any other complaints reports pain is in the pelvic area it's intermittent crampy consistent with pain she gets with her menses. She reports she did not take a test, and her last missed her period was August 10. She denies urinary complaints, abnormal discharge, reports she thinks she might be . Allergies: Coded Allergies: PENICILLINS (Verified Allergy, Unknown, 06/09/16) Uncoded Allergies: AMOXILLINS (Allergy, Unknown, 04/10/16) Patient History Past Medical History: see triage record Last Menstrual Period: 08/10/17 Now: Yes : 6 Para: 2 Reviewed Nursing Documentation: PMH: Agreed; PSxH: Agreed Nursing Documentation-PMH Past Medical History: No Stated History Hx Cardiac Problems: No - Ectopic July 2015 Hx Cancer: No Hx Gastrointestinal Problems: No Hx Neurological Problems: No Review of Systems All Other Systems: negative except mentioned in HPI Physical Exam Vital Signs Date Time Temp Pulse Resp B/P (MAP) Pulse Ox O2 Delivery O2 Flow Rate FiO2 09/24/17 09:47 98.6 91 16 121/76 95 Room Air 98.6 Sp02 EP Interpretation: reviewed, normal General Appearance: no apparent distress, alert, non-toxic Head: normocephalic Eyes: bilateral eye normal inspection, bilateral eye PERRL, bilateral eye EOMI ENT: normal ENT inspection, hearing grossly normal, normal pharynx, no angioedema, normal voice, moist mucus membranes Neck: normal inspection, full range of motion, supple, supple/symm/no masses Respiratory: chest non-tender, lungs clear, normal breath sounds, chest symmetrical, palpation of chest normal Cardiovascular #1: normal peripheral pulses, regular rate, rhythm Cardiovascular #2: 2+ radial (R), 2+ radial (L) Gastrointestinal: normal inspection, non tender, soft, no mass, no guarding, no rebound Rectal: deferred Genitourinary: normal inspection, no CVA tenderness Musculoskeletal: back normal, gait/station normal, normal range of motion, non- tender, no calf tenderness Neurologic: alert, responsive, manager non profit III-XII nml as tested, motor strength/tone normal, sensory intact, speech normal Psychiatric: judgement/insight normal, memory normal, mood/affect normal, no suicidal/homicidal ideation Skin: normal color, no rash, warm/dry, normal turgor Lymphatic: no adenopathy Medical Decision Making ER Course Review of old records reveals that patient is Rh+, her hemoglobin today is completely stable, her urine does show lots of blood, although his glucose is positive, she has no UTI symptomatology. Her abdominal exam is soft and nontender. Patient appears to be in no distress at all and not having any active cramping or pain currently. Her hCG level is 20. US normal, no IUP, adnexal masses, or FF. She likely had a spontaneous miscarriage, however ectopic versus threatened AB cannot be ruled out. I will recommend she follow up for repeat beta hCG in 2 days prior primary MANAGER STYLE or return to the ER. CT/MRI/US Diagnostic Results CT/MRI/US Diagnostic Results : Imaging Test Ordered: pelvic US Impression no IUP, no adnexal masses, no free fluid; cervix closed Last Vital Signs Date Time Temp Pulse Resp B/P (MAP) Pulse Ox O2 Delivery O2 Flow Rate FiO2 09/24/17 10:13 98.6 09/24/17 09:47 91 16 121/76 95 Room Air Disposition: HOME, SELF-CARE Condition: Stable Referrals: [facility],REFERRING (PCP) ELEONORA WELLINGTON M.D Sep 24, 2017 10:55
[2017-09-24 10:58] LABS: ALANINE AMINOTRANSFERASE 14 U/L (12-78); ALBUMIN 3.8 G/DL (3.4-5.0); ALBUMIN/GLOBULIN RATIO 0.9 (1.0-2.7); ALKALINE PHOSPHATASE 77 U/L (46-116); ASPARTATE AMINO TRANSFERASE 14 U/L (15-37); BILIRUBIN,TOTAL 0.4 MG/DL (0.2-1.0)
[2017-09-24 13:19] VITALS: BP 114/76
[2017-09-24 13:45] VITALS: BP 114/76
--- NOTE | 2017-09-24 15:01 | Diagnostic Imaging Report ---
Indication: Vaginal bleeding, count pain, positive beta hCG Technique: Transabdominal and transvaginal images Comparison: 06/25/2016 Findings: Uterus measures 9.4 cm length by 5 cm AP. Endometrium measures 7 mm thick. No intrauterine gestational sac demonstrated. There are small cervical nabothian cysts. No myometrial abnormality. Left ovary measures 2.8 cm in length. Right ovary measures 2.7 cm in length. Both ovaries demonstrate normal blood flow. No free cul-de-sac fluid. Impression: No intrauterine demonstrated. Differential considerations include very early and therefore sonographically occult intrauterine , spontaneous , ectopic . Recommend correlation with serial beta hCGs, consider follow-up sonography is indicated No other significant abnormality
== END 2017-09-24 13:45 | disposition home or self-care (01) ==
LOC: EMR 10:04
DX: N93.9 Abnormal uterine and vaginal bleeding, unspecified (principal)
CPT/HCPCS: 36415; 76801; 80053; 81003; 83690; 84702; 85025; 99284

== ENCOUNTER 2017-09-26 09:00 | Emergency (ER) | payer MEDICAID ==
[~2017-09-26] VITALS: Ht 177.8 cm; Wt 113.4 kg
[2017-09-26 09:21] VITALS: BP 118/75
--- NOTE | 2017-09-26 09:53 | Emergency Room Report ---
History of Present Illness General Chief Complaint: General Complaint Source: Patient Present Illness HPI 27-year-old female presents ED for follow-up. States that she was here 2 days ago subsequently discharged as threatened . She states she is here for repeat beta hCG. States she is still spotting. States she has follow-up with her PAPER CUP MACHINE OPERATOR this upcoming week. Denies any abdominal pain. Denies any nausea or vomiting. Denies fevers or chills. No other aggravating relieving factors. Denies any other associated symptoms Allergies: Coded Allergies: PENICILLINS (Verified Allergy, Unknown, 06/09/16) Uncoded Allergies: AMOXILLINS (Allergy, Unknown, 04/10/16) Patient History Past Medical History: none Past Surgical History: none Pertinent Family History: none Social History: Denies: smoking, alcohol use, drug use Last Menstrual Period: 08/10/2017 Now: No Immunizations: UTD Reviewed Nursing Documentation: PMH: Agreed; PSxH: Agreed Nursing Documentation-PMH Past Medical History: No Stated History Hx Cardiac Problems: No - Ectopic July 2015 Hx Cancer: No Hx Gastrointestinal Problems: No Hx Neurological Problems: No Review of Systems All Other Systems: negative except mentioned in HPI Physical Exam Vital Signs Date Time Temp Pulse Resp B/P (MAP) Pulse Ox O2 Delivery O2 Flow Rate FiO2 09/26/17 09:07 98.4 85 14 118/75 97 Room Air 98.4 Sp02 EP Interpretation: reviewed, normal General Appearance: no apparent distress, alert, GCS 15, non-toxic Head: normocephalic, atraumatic Eyes: bilateral eye normal inspection, bilateral eye PERRL ENT: hearing grossly normal, normal pharynx, no angioedema, normal voice Neck: full range of motion, supple/symm/no masses Respiratory: chest non-tender, lungs clear, normal breath sounds, speaking full sentences Cardiovascular #1: regular rate, rhythm, no edema Cardiovascular #2: 2+ carotid (R), 2+ carotid (L), 2+ radial (R), 2+ radial (L) , 2+ dorsalis pedis (R), 2+ dorsalis pedis (L) Gastrointestinal: normal bowel sounds, non tender, soft, non-distended, no guarding, no rebound Rectal: deferred Genitourinary: normal inspection, no CVA tenderness Musculoskeletal: back normal, gait/station normal, normal range of motion, non- tender Neurologic: alert, oriented x3, responsive, motor strength/tone normal, sensory intact, speech normal Psychiatric: judgement/insight normal, memory normal, mood/affect normal, no suicidal/homicidal ideation Reflexes: 3+ bicep (R), 3+ bicep (L), 3+ tricep (R), 3+ tricep (L), 3+ knee (R) , 3+ knee (L) Skin: normal color, no rash, warm/dry, well hydrated Lymphatic: no adenopathy Medical Decision Making Diagnostic Impression: Primary Impression: Miscarriage ER Course Hospital Course 27-year-old female presents ED for follow-up on her beta hCG. Was seen here 2 days ago Differential diagnoses include: ectopic pregnany, threatened , miscarriage Clinical course Patient placed on stretcher in ED. After initial history and physical I ordered BHCG BHCG 7 Beta hCG was 22 days ago. Consistent with miscarriage. Discussed findings with patient. Patient states she has PAPER CUP MACHINE OPERATOR she can follow-up with this week Diagnosis - miscarraige Stable and discharged to home. Followup with PMD/PAPER CUP MACHINE OPERATOR. Return to ED if symptoms recur or worsen Labs Test 09/26/17 08:45 Human Chorionic Gonadotropin, Quant 7 mIU/mL (1-6) Last Vital Signs Date Time Temp Pulse Resp B/P (MAP) Pulse Ox O2 Delivery O2 Flow Rate FiO2 09/26/17 09:21 98.4 82 14 118/75 97 Room Air 98.4 Status: improved Disposition: HOME, SELF-CARE Condition: Stable Heriberto Sunshine MD Sep 26, 2017 09:53
[2017-09-26 10:16] VITALS: BP 118/75
== END 2017-09-26 10:17 | disposition home or self-care (01) ==
LOC: EMR 10:13
DX: O03.9 Complete or unspecified spontaneous abortion without complication (principal); Z88.0 Allergy status to penicillin
CPT/HCPCS: 36415; 84702; 99283

== ENCOUNTER 2018-01-29 17:55 | Emergency (ER) | payer MEDICAID ==
[~2018-01-29] VITALS: Ht 177.8 cm; Wt 104.3 kg
[~2018-01-29 17:55] MED LIST changes: +CLINDAMYCIN HC300 MG ORAL
[2018-01-29] MEDS ORDERED: NKM (18:02)
[2018-01-29] MEDS ORDERED: Albuterol/Ipratropium 3ml neb HHN ONE (18:30)
[2018-01-29 18:46] VITALS: BP 146/99
[2018-01-29 18:55] LABS: APPEARANCE,URINE CLEAR; BILIRUBIN, URINE NEGATIVE (NEGATIVE); COLOR,URINE PALE YELLOW; GLUCOSE, URINE (UA) NEGATIVE (NEGATIVE); KETONES,URINE NEGATIVE (NEGATIVE); LEUKOCYTE ESTERASE ,URINE 1+ (NEGATIVE); NITRITE,URINE NEGATIVE (NEGATIVE); PH,URINE 6.5 (4.5-8.0); PROTEIN,URINE NEGATIVE (NEGATIVE); UROBILINOGEN,URINE 1 MG/DL (0.0-1.0)
[2018-01-29] MEDS ORDERED: ALBUTEROL SULF8.5 GM INH (19:38)
[2018-01-29] MEDS ORDERED: PREDNISONE20 MG ORAL (19:38)
--- NOTE | 2018-01-29 19:45 | Emergency Room Report ---
History of Present Illness General Chief Complaint: Dyspnea/Respdistress Source: Medical Record Present Illness HPI Patient is 19-year-old female presented after increased cough and difficulty breathing. Patient reports having prior history of bronchitis. Patient reports increased nonproductive cough. She had been taking her inhaler without any relief. Patient denies any prior history of asthma. She had been not having any recent leg pain or swelling. Patient states she is currently breast- feeding that woke is okay to take steroids because she will stop breast-feeding Allergies: Coded Allergies: PENICILLINS (Verified Allergy, Unknown, 06/09/16) Uncoded Allergies: AMOXILLINS (Allergy, Unknown, 04/10/16) Patient History Past Medical History: see triage record Last Menstrual Period: 01/03/18 Now: No Reviewed Nursing Documentation: PMH: Agreed; PSxH: Agreed Nursing Documentation-PMH Hx Cardiac Problems: No - Ectopic July 2015 Hx Cancer: No Hx Gastrointestinal Problems: No Hx Neurological Problems: No Review of Systems All Other Systems: negative except mentioned in HPI Physical Exam Vital Signs Date Time Temp Pulse Resp B/P (MAP) Pulse Ox O2 Delivery O2 Flow Rate FiO2 01/29/18 17:58 98.1 118 24 151/97 97 Room Air 01/29/18 18:36 21 General Appearance: well appearing, no apparent distress, alert, GCS 15 Head: normocephalic, atraumatic ENT: hearing grossly normal, normal voice Neck: full range of motion, supple Respiratory: no respiratory distress, respiratory distress, speaking full sentences, wheezing Cardiovascular #1: normal peripheral pulses, regular rate, rhythm, no edema Musculoskeletal: no calf tenderness Neurologic: normal gait Psychiatric: mood/affect normal Skin: no rash Medical Decision Making Diagnostic Impression: Primary Impression: Bronchitis ER Course Patient presented for cough. Differential diagnosis included but was not limited to bronchitis, pneumonia, pulmonary embolism, pericarditis, asthma, foreign body. Patient is given nebulized albuterol with improvement. Patient was given steroids. Repeat lung exam showed improved breath sounds. The EKG interpreted by me showed normal sinus rhythm without acute ST or T wave changes.patient is advised not to breast-feed.The patient is advised to follow up with primary care doctor in 1-2 days. Patient is advised to return if any worsening condition or if any changes in status that are concerning. This report is dictated with [employer] bibliographic services specialist software which may occasionally lead to discrepancies related to use of this software. Last Vital Signs Date Time Temp Pulse Resp B/P (MAP) Pulse Ox O2 Delivery O2 Flow Rate FiO2 01/29/18 18:46 97.9 97 14 146/99 98 Room Air 01/29/18 18:46 21 Status: improved Disposition: HOME, SELF-CARE Condition: Stable Scripts Albuterol Sulfate* (ALBUTEROL SULFATE MDI*) 8.5 Gm Hfa.aer.ad 2 PUFF INH Q6H, #1 EA 0 Refills Prov: Alex Whitmore MD 01/29/18 Prednisone* (PREDNISONE*) 20 Mg Tablet 40 MG ORAL DAILY, #10 TAB Prov: Alex Whitmore MD 01/29/18 Patient Instructions: Acute Bronchitis Alex Whitmore MD Jan 29, 2018 19:45
[2018-01-29 20:29] VITALS: BP 146/99
== END 2018-01-29 20:29 | disposition home or self-care (01) ==
LOC: EMR 20:05
DX: J40 Bronchitis, not specified as acute or chronic (principal); Z88.0 Allergy status to penicillin
CPT/HCPCS: 80307; 81003; 81025; 93005; 94640; 99284; J7512; J7620

== ENCOUNTER 2018-04-10 10:02 | Emergency (ER) | payer MEDICAID ==
[~2018-04-10] VITALS: Ht 177.8 cm; Wt 104.3 kg
[~2018-04-10 10:02] MED LIST changes: +ALBUTEROL SULF8.5 GM INH; +PREDNISONE20 MG ORAL
--- NOTE | 2018-04-10 10:10 | NUR ---
ED Nurse Note: PER PT, SHE HAD
--- NOTE | 2018-04-10 10:10 | NUR ---
ED Nurse Note: 6 WEEKS PATIENT AMBULATED IN TO ED FROM HOME DUE TO CRAMPING ON THE LOWER ABDOMINAL AND SPOTTING SINCE THIS MORNING. NO OBGYN CHECK UP DONE YET.
--- NOTE | 2018-04-10 10:20 | NUR ---
ED Nurse Note: BLOOD SPECIMENS AND URINE SENT DOWN TO THE LAB.
[2018-04-10 10:35] LABS: APPEARANCE,URINE CLEAR; BASOPHILS % (AUTO) 1.1 % (0.0-2.0); BILIRUBIN, URINE NEGATIVE (NEGATIVE); EOSINOPHILS % (AUTO) 1.4 % (0.0-3.0); GLUCOSE, URINE (UA) NEGATIVE (NEGATIVE); HEMATOCRIT 46.3 % (37.0-47.0); HEMOGLOBIN 15.4 G/DL (12.0-16.0); KETONES,URINE 2+ (NEGATIVE); LEUKOCYTE ESTERASE ,URINE 1+ (NEGATIVE); LYMPHOCYTES % (AUTO) 25.5 % (20.0-45.0); MEAN CORPUSCULAR VOLUME 89 FL (80-99); NITRITE,URINE NEGATIVE (NEGATIVE); PH,URINE 6 (4.5-8.0); PLATELET COUNT 381 K/UL (150-450); PROTEIN,URINE 1+ (NEGATIVE); RED BLOOD COUNT 5.19 M/UL (4.20-5.40); RED CELL DISTRIBUTION WIDTH 11.9 % (11.6-14.8); UROBILINOGEN,URINE NORMAL MG/DL (0.0-1.0)
[2018-04-10 10:36] LABS: COLOR,URINE YELLOW
[2018-04-10 10:48] LABS: ANION GAP 8 mmol/L (5-15); BLOOD UREA NITROGEN 10 mg/dL (7-18); CALCIUM 9.5 MG/DL (8.5-10.1); CARBON DIOXIDE 24 MMOL/L (21-32); CHLORIDE 103 MMOL/L (98-107); CREATININE 0.8 MG/DL (0.55-1.30); POTASSIUM 3.6 MMOL/L (3.5-5.1); SODIUM 135 MMOL/L (136-145)
[2018-04-10 10:52] LABS: ALANINE AMINOTRANSFERASE 16 U/L (12-78); ALBUMIN 3.9 G/DL (3.4-5.0); ALBUMIN/GLOBULIN RATIO 0.9 (1.0-2.7); ALKALINE PHOSPHATASE 75 U/L (46-116); ASPARTATE AMINO TRANSFERASE 16 U/L (15-37); BILIRUBIN,TOTAL 0.7 MG/DL (0.2-1.0)
--- NOTE | 2018-04-10 11:49 | NUR ---
ED Nurse Note: pt went down for US.
--- NOTE | 2018-04-10 12:18 | Emergency Room Report ---
History of Present Illness General Chief Complaint: Complications Source: Medical Record Present Illness HPI 27-year-old female presents ED for evaluation. Complaining of cramping abdominal pain and spotting since this morning. Pain is 6 out of 10, nonradiating. States she is about 6 weeks . States last menstrual period was 6 weeks ago. Denies any abdominal pain. Denies any nausea or vomiting. No other aggravating relieving factors. Denies any other associated symptoms Allergies: Coded Allergies: PENICILLINS (Verified Allergy, Unknown, 06/09/16) Uncoded Allergies: AMOXILLINS (Allergy, Unknown, 04/10/16) Patient History Past Medical History: none Past Surgical History: none Pertinent Family History: none Social History: Denies: smoking, alcohol use, drug use Last Menstrual Period: 03/02/18 Now: Yes Immunizations: UTD Reviewed Nursing Documentation: PMH: Agreed; PSxH: Agreed Nursing Documentation-PMH Past Medical History: No History, Except For Hx Cardiac Problems: No - Ectopic July 2015 Hx Cancer: No Hx Gastrointestinal Problems: No Hx Neurological Problems: No Review of Systems All Other Systems: negative except mentioned in HPI Physical Exam Vital Signs Date Time Temp Pulse Resp B/P (MAP) Pulse Ox O2 Delivery O2 Flow Rate FiO2 04/10/18 10:06 97.7 108 18 117/76 97 Room Air Sp02 EP Interpretation: reviewed, normal General Appearance: no apparent distress, alert, GCS 15, non-toxic Head: normocephalic Eyes: bilateral eye normal inspection, bilateral eye PERRL ENT: normal ENT inspection Neck: normal inspection Respiratory: normal inspection Cardiovascular #1: normal inspection Gastrointestinal: normal inspection Rectal: deferred Genitourinary: no CVA tenderness Musculoskeletal: normal inspection Neurologic: alert, oriented x3, responsive, motor strength/tone normal, sensory intact, speech normal Psychiatric: normal inspection Skin: normal inspection Lymphatic: normal inspection Medical Decision Making Diagnostic Impression: Primary Impression: Threatened Additional Impression: UTI (urinary tract infection) Qualified Codes: N39.0 - Urinary tract infection, site not specified ER Course Hospital Course 27-year-old F presents to ED complaining of vaginal bleeding. approxiamtely 6 weeks pregant Differential diagnoses include: gastrits, gastroenterits, ectopic , ovarian torsion/cyst, UTI Clinical course Patient placed on stretcher in ED. After initial history and physical I ordered labs, IV fluids and pelvic ultrasound. Labs-no leukocytosis, hb/hhct stable electrolytes okay, beta hCG > 15k, UA + bacteria Pelvic ultrasound- gestational sac and yolk sac noted. No pole. approximately 5 weeks. Good flow to both ovaries. Given Macrobid here. Discussed findings with patient. Safe for discharge and close outpatient follow-up. Patient will require repeat ultrasound. 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 Diagnosis - threatend , UTI Stable and discharged to home with Rx Macrobid. Followup with PMD/HELMET HAT SWEATBAND PUNCHER. Return to ED if symptoms recur or worsen Labs Test 04/10/18 10:24 White Blood Count 9.0 K/UL (4.8-10.8) Red Blood Count 5.19 M/UL (4.20-5.40) Hemoglobin 15.4 G/DL (12.0-16.0) Hematocrit 46.3 % (37.0-47.0) Mean Corpuscular Volume 89 FL (80-99) Mean Corpuscular Hemoglobin 29.7 PG (27.0-31.0) Mean Corpuscular Hemoglobin Concent 33.3 G/DL (32.0-36.0) Red Cell Distribution Width 11.9 % (11.6-14.8) Platelet Count 381 K/UL (150-450) Mean Platelet Volume 5.6 FL (6.5-10.1) Neutrophils (%) (Auto) 66.0 % (45.0-75.0) Lymphocytes (%) (Auto) 25.5 % (20.0-45.0) Monocytes (%) (Auto) 6.0 % (1.0-10.0) Eosinophils (%) (Auto) 1.4 % (0.0-3.0) Basophils (%) (Auto) 1.1 % (0.0-2.0) Urine Color Yellow Urine Appearance Clear Urine pH 6 (4.5-8.0) Urine Specific [place] 1.020 (1.005-1.035) Urine Protein 1+ (NEGATIVE) Urine Glucose (UA) Negative (NEGATIVE) Urine Ketones 2+ (NEGATIVE) Urine Blood 4+ (NEGATIVE) Urine Nitrite Negative (NEGATIVE) Urine Bilirubin Negative (NEGATIVE) Urine Urobilinogen Normal MG/DL (0.0-1.0) Urine Leukocyte Esterase 1+ (NEGATIVE) Urine RBC 2-4 /HPF (0 - 2) Urine WBC 0-2 /HPF (0 - 2) Urine Squamous Epithelial Cells Moderate /LPF (NONE/OCC) Urine Bacteria Moderate /HPF (NONE) Urine HCG, Qualitative Positive (NEGATIVE) Sodium Level 135 MMOL/L (136-145) Potassium Level 3.6 MMOL/L (3.5-5.1) Chloride Level 103 MMOL/L (98-107) Carbon Dioxide Level 24 MMOL/L (21-32) Anion Gap 8 mmol/L (5-15) Blood Urea Nitrogen 10 mg/dL (7-18) Creatinine 0.8 MG/DL (0.55-1.30) Estimat Glomerular Filtration Rate > 60 mL/min (>60) Glucose Level 91 MG/DL (74-106) Calcium Level 9.5 MG/DL (8.5-10.1) Total Bilirubin 0.7 MG/DL (0.2-1.0) Aspartate Amino Transf (AST/SGOT) 16 U/L (15-37) Alanine Aminotransferase (ALT/SGPT) 16 U/L (12-78) Alkaline Phosphatase 75 U/L (46-116) Total Protein 8.3 G/DL (6.4-8.2) Albumin 3.9 G/DL (3.4-5.0) Globulin 4.4 g/dL Albumin/Globulin Ratio 0.9 (1.0-2.7) Lipase 117 U/L (73-393) Human Chorionic Gonadotropin, Quant 82574 mIU/mL (1-6) CT/MRI/US Diagnostic Results CT/MRI/US Diagnostic Results : Imaging Test Ordered: OB US Impression gestational sac, yok sac. approximately 5 weeks. no pole. good flow to both ovaries Last Vital Signs Date Time Temp Pulse Resp B/P (MAP) Pulse Ox O2 Delivery O2 Flow Rate FiO2 04/10/18 10:06 97.7 108 18 117/76 97 Room Air Status: improved Disposition: HOME, SELF-CARE Condition: Stable Scripts Nitrofurantoin Monohyd/M-Cryst* (MACROBID 100 MG*) 100 Mg Capsule 100 MG ORAL EVERY 12 HOURS for 7 Days, CAP Prov: Heriberto Sunshine MD 04/10/18 Referrals: [facility],REFERRING (PCP) Heriberto Sunshine MD Apr 10, 2018 12:17
--- NOTE | 2018-04-10 12:33 | NUR ---
ED Nurse Note: pt is back from US. Remains stable.
[2018-04-10] MEDS ORDERED: NITROFURANTOIN100 M2 ORAL (12:44)
[2018-04-10 12:54] VITALS: BP 106/72
--- NOTE | 2018-04-10 12:54 | NUR ---
ED Nurse Note: Pt cleared DC by Dr. Sullivan. Pt is A/Ox4, VSS, DC instruction and prescriptions given, pt verbalized understanding. IV and ID wristband removed. All belongings given to pt. Pt ambulated out of ER with steady gait.
== END 2018-04-10 12:55 | disposition home or self-care (01) ==
LOC: EMR 10:35
DX: O20.0 Threatened abortion (principal); Z3A.01 Less than 8 weeks gestation of pregnancy; O23.41 Unspecified infection of urinary tract in pregnancy, first trimester; Z88.0 Allergy status to penicillin
CPT/HCPCS: 36415; 76801; 76830; 80053; 81003; 81025; 83690; 84702; 85025; 87086; 99284

== ENCOUNTER 2018-04-21 13:25 | Emergency (ER) | payer MEDICAID ==
[~2018-04-21] VITALS: Ht 177.8 cm; Wt 104.3 kg
[2018-04-21] MEDS ORDERED: Dextrose 5%/Lactated Ringer's 1,000 ML IV SCH (13:45)
--- NOTE | 2018-04-21 13:49 | NUR ---
ED Nurse Note: U/S tech contacted.
[2018-04-21 13:50] VITALS: BP 129/77
--- NOTE | 2018-04-21 13:56 | Emergency Room Report ---
History of Present Illness General Chief Complaint: Vomiting Source: Patient, Medical Record Present Illness HPI Patient is a 19-year-old female presented after increased vomiting and generalized body aches. Patient had recently been treated for urinary infection with Macrobid. She reports having approximate 7 weeks at this time. Patient is normally followed by Dr. David Damian. She denies any vomiting blood. She denies any current pain. She reports having increased generalized body aches. Patient reports having persistent cough for several days. She reports having fever and chills since yesterday. Allergies: Coded Allergies: PENICILLINS (Verified Allergy, Unknown, 06/09/16) Uncoded Allergies: AMOXILLINS (Allergy, Unknown, 04/10/16) Patient History Past Medical History: see triage record Last Menstrual Period: 03/02/18 Now: Yes Reviewed Nursing Documentation: PMH: Agreed; PSxH: Agreed Nursing Documentation-PMH Past Medical History: No History, Except For Hx Cardiac Problems: No - Ectopic July 2015 Hx Cancer: No Hx Gastrointestinal Problems: No Hx Neurological Problems: No Review of Systems All Other Systems: negative except mentioned in HPI Physical Exam Vital Signs Date Time Temp Pulse Resp B/P (MAP) Pulse Ox O2 Delivery O2 Flow Rate FiO2 04/21/18 13:31 98.8 121 18 130/78 96 Room Air Sp02 EP Interpretation: reviewed, normal General Appearance: normal inspection, well appearing, no apparent distress, alert, GCS 15 Head: atraumatic ENT: normal ENT inspection, hearing grossly normal, normal voice, other - rhinorhea Neck: normal inspection, full range of motion, supple, no bony tend Respiratory: normal inspection, lungs clear, normal breath sounds, no respiratory distress, no retraction, no wheezing Cardiovascular #1: regular rate, rhythm, no edema Gastrointestinal: normal inspection, normal bowel sounds, non tender, soft, no guarding, no hernia Genitourinary: no CVA tenderness Musculoskeletal: normal inspection, back normal, normal range of motion Neurologic: normal inspection, alert, oriented x3, responsive, planishing press operator III-XII nml as tested, motor strength/tone normal, speech normal Psychiatric: normal inspection, judgement/insight normal, mood/affect normal Skin: normal inspection, normal color, no rash Medical Decision Making Diagnostic Impression: Primary Impression: Hyperemesis gravidarum Additional Impression: UTI (urinary tract infection) ER Course Patient presented for abdominal pain. Differential diagnoses included ischemic bowel, appendicitis, perforated viscus, abdominal aortic aneurysm, inferior myocardial infarction, viral gastroenteritis among others. Patient is noted to have symptoms consistent with hyperemesis. Laboratory testing was ordered due to patient's complaints of chills.Patient given IV antibiotics. Patient given IV Rocephin without any sign of allergic reaction. Patient was noted to have improvement in her symptoms after medications for emesis which included Zofran and Reglan after discussion of risks regarding the 2 medications. Patient was given IV fluids patient appears to have primarily hyperemesis gravidarum. 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 Labs Test 04/21/18 14:00 White Blood Count 15.5 K/UL (4.8-10.8) Red Blood Count 5.13 M/UL (4.20-5.40) Hemoglobin 15.3 G/DL (12.0-16.0) Hematocrit 45.6 % (37.0-47.0) Mean Corpuscular Volume 89 FL (80-99) Mean Corpuscular Hemoglobin 29.7 PG (27.0-31.0) Mean Corpuscular Hemoglobin Concent 33.5 G/DL (32.0-36.0) Red Cell Distribution Width 11.6 % (11.6-14.8) Platelet Count 366 K/UL (150-450) Mean Platelet Volume 5.4 FL (6.5-10.1) Neutrophils (%) (Auto) 84.0 % (45.0-75.0) Lymphocytes (%) (Auto) 9.2 % (20.0-45.0) Monocytes (%) (Auto) 5.8 % (1.0-10.0) Eosinophils (%) (Auto) 0.1 % (0.0-3.0) Basophils (%) (Auto) 0.9 % (0.0-2.0) Urine Color Yellow Urine Appearance Slightly cloudy Urine pH 7 (4.5-8.0) Urine Specific [place] 1.010 (1.005-1.035) Urine Protein 2+ (NEGATIVE) Urine Glucose (UA) Negative (NEGATIVE) Urine Ketones 4+ (NEGATIVE) Urine Blood 1+ (NEGATIVE) Urine Nitrite Negative (NEGATIVE) Urine Bilirubin Negative (NEGATIVE) Urine Urobilinogen 1 MG/DL (0.0-1.0) Urine Leukocyte Esterase 3+ (NEGATIVE) Urine RBC 2-4 /HPF (0 - 2) Urine WBC 5-10 /HPF (0 - 2) Urine Squamous Epithelial Cells Few /LPF (NONE/OCC) Urine Bacteria Few /HPF (NONE) Sodium Level 136 MMOL/L (136-145) Potassium Level 4.0 MMOL/L (3.5-5.1) Chloride Level 99 MMOL/L (98-107) Carbon Dioxide Level 25 MMOL/L (21-32) Anion Gap 12 mmol/L (5-15) Blood Urea Nitrogen 6 mg/dL (7-18) Creatinine 0.8 MG/DL (0.55-1.30) Estimat Glomerular Filtration Rate > 60 mL/min (>60) Glucose Level 104 MG/DL (74-106) Calcium Level 9.1 MG/DL (8.5-10.1) Total Bilirubin 0.4 MG/DL (0.2-1.0) Aspartate Amino Transf (AST/SGOT) 14 U/L (15-37) Alanine Aminotransferase (ALT/SGPT) 14 U/L (12-78) Alkaline Phosphatase 83 U/L (46-116) Total Protein 8.8 G/DL (6.4-8.2) Albumin 3.8 G/DL (3.4-5.0) Globulin 5.0 g/dL Albumin/Globulin Ratio 0.8 (1.0-2.7) Last Vital Signs Date Time Temp Pulse Resp B/P (MAP) Pulse Ox O2 Delivery O2 Flow Rate FiO2 04/21/18 13:31 98.8 121 18 130/78 96 Room Air Status: improved Disposition: HOME, SELF-CARE Condition: Stable Scripts Ondansetron Odt* (ZOFRAN ODT*) 8 Mg Tab.rapdis 8 MG ORAL Q6H PRN for Nausea & Vomiting, #30 TAB Prov: Alex Whitmore MD 04/21/18 Alex Whitmore MD Apr 21, 2018 13:56
--- NOTE | 2018-04-21 14:20 | NUR ---
ED Nurse Note: Patient taken down for pelvic u/s accompained by spouse.
[2018-04-21 14:32] LABS: BASOPHILS % (AUTO) 0.9 % (0.0-2.0); EOSINOPHILS % (AUTO) 0.1 % (0.0-3.0); HEMATOCRIT 45.6 % (37.0-47.0); HEMOGLOBIN 15.3 G/DL (12.0-16.0); LYMPHOCYTES % (AUTO) 9.2 % (20.0-45.0); MEAN CORPUSCULAR VOLUME 89 FL (80-99); MONOCYTES % (AUTO) 5.8 % (1.0-10.0); PLATELET COUNT 366 K/UL (150-450); RED BLOOD COUNT 5.13 M/UL (4.20-5.40); RED CELL DISTRIBUTION WIDTH 11.6 % (11.6-14.8); WHITE BLOOD COUNT 15.5 K/UL (4.8-10.8)
[2018-04-21 14:41] LABS: APPEARANCE,URINE SLIGHTLY CLOUDY; BILIRUBIN, URINE NEGATIVE (NEGATIVE); GLUCOSE, URINE (UA) NEGATIVE (NEGATIVE); KETONES,URINE 4+ (NEGATIVE); LEUKOCYTE ESTERASE ,URINE 3+ (NEGATIVE); NITRITE,URINE NEGATIVE (NEGATIVE); PH,URINE 7 (4.5-8.0); PROTEIN,URINE 2+ (NEGATIVE); UROBILINOGEN,URINE 1 MG/DL (0.0-1.0)
[2018-04-21 14:42] LABS: COLOR,URINE YELLOW
[2018-04-21 14:59] LABS: ANION GAP 12 mmol/L (5-15); BLOOD UREA NITROGEN 6 mg/dL (7-18); CALCIUM 9.1 MG/DL (8.5-10.1); CARBON DIOXIDE 25 MMOL/L (21-32); CHLORIDE 99 MMOL/L (98-107); CREATININE 0.8 MG/DL (0.55-1.30); SODIUM 136 MMOL/L (136-145)
[2018-04-21 15:02] LABS: ALANINE AMINOTRANSFERASE 14 U/L (12-78); ALBUMIN 3.8 G/DL (3.4-5.0); ALBUMIN/GLOBULIN RATIO 0.8 (1.0-2.7); ALKALINE PHOSPHATASE 83 U/L (46-116); ASPARTATE AMINO TRANSFERASE 14 U/L (15-37); BILIRUBIN,TOTAL 0.4 MG/DL (0.2-1.0)
[2018-04-21 15:50] VITALS: BP 126/67
[2018-04-21] MEDS ORDERED: Acetaminophen 500mg (ES) tab ORAL ONE (16:00)
[2018-04-21] MEDS ORDERED: Metoclopramide 10mg/2ml Inj IVP ONE (16:00)
--- NOTE | 2018-04-21 16:28 | Diagnostic Imaging Report ---
Indication: Abdominal pain, positive Technique: Transabdominal and transvaginal images transabdominal and transvaginal images. Doppler interrogation of the bilateral ovaries Comparison: none Findings: Uterus measures 8.9 cm length by 5.1 cm AP. Within the endometrium, there is a gestational sac. This contains a pole with a crown-rump length of 1.1 cm, corresponding to an assessment gestational age of 7 weeks 2 days. There is positive heart activity, heart rate 151 bpm. Yolk sac is also demonstrated. No subchorionic hemorrhage demonstrated. Cervix is closed. No myometrial abnormality. The left ovary measures 3.2 cm in length. The right ovary measures 2.8 cm in length. No adnexal mass demonstrated. Normal ovarian blood flow demonstrated. No free cul-de-sac fluid Impression: 7 week 2 day, by crown-rump length measurement, single live intrauterine . No unusual features
[2018-04-21] MEDS ORDERED: cefTRIAXone 1 GM in NS 55 ML IVPB ONE (17:00)
[2018-04-21] MEDS ORDERED: ZOFRAN ODT8 MG ORAL (17:21)
[2018-04-21 17:46] VITALS: BP 128/69
--- NOTE | 2018-04-21 17:49 | NUR ---
ED Nurse Note: pt cleared to be d/c per ERMD, pt discharge/aftercare instruction provided and medication prescription sent to pharmacy via electronically, pt advised to follow up with pcp/ob-gynecological assistant to continue care and return to ed if sx worsen or new sx develop, pt education done via discussion and handout, pt verbalized understanding and agrees with plan. all belongings sent with pt, vss, airway intact, resp even and unlabored on RA, ambulatory w/ steady gait, pt states spouse member linda pick pt up. wristband and iv d/c, dressing applied.
== END 2018-04-21 17:30 | disposition home or self-care (01) ==
LOC: EMR 14:09
DX: O21.0 Mild hyperemesis gravidarum (principal); O23.41 Unspecified infection of urinary tract in pregnancy, first trimester; Z3A.01 Less than 8 weeks gestation of pregnancy; Z88.0 Allergy status to penicillin
CPT/HCPCS: 36415; 76801; 76830; 80053; 81001; 85025; 86710; 86850; 86900; 86901; 87040; 96365; 96366; 96368; 96375; 99284; J0696; J2405; J2765; J7040

== ENCOUNTER 2018-09-04 17:45 | Emergency (ER) | payer MEDICAID ==
[~2018-09-04] VITALS: Ht 177.8 cm; Wt 113.4 kg
[~2018-09-04 17:45] MED LIST changes: +ZOFRAN ODT8 MG ORAL
[2018-09-04 17:48] VITALS: BP 124/72
--- NOTE | 2018-09-04 17:52 | NUR ---
ED Nurse Note: Patient walked into ED c/o right thigh pain for the past couple days. patient is 6 months , states that she does have a history of DVT. patient rates her pain a 7/10 pain. patient is alert and oriented x4, ambulatory with a steady gait, VSS
[2018-09-04 18:35] LABS: BASOPHILS % (AUTO) 1.2 % (0.0-2.0); EOSINOPHILS % (AUTO) 2.3 % (0.0-3.0); HEMATOCRIT 35.2 % (37.0-47.0); HEMOGLOBIN 11.9 G/DL (12.0-16.0); LYMPHOCYTES % (AUTO) 22.7 % (20.0-45.0); MEAN CORPUSCULAR VOLUME 91 FL (80-99); MONOCYTES % (AUTO) 6.9 % (1.0-10.0); PLATELET COUNT 216 K/UL (150-450); RED BLOOD COUNT 3.87 M/UL (4.20-5.40); RED CELL DISTRIBUTION WIDTH 11.3 % (11.6-14.8); WHITE BLOOD COUNT 7.9 K/UL (4.8-10.8)
[2018-09-04 18:45] LABS: APPEARANCE,URINE CLOUDY; BILIRUBIN, URINE NEGATIVE (NEGATIVE); GLUCOSE, URINE (UA) 1+ (NEGATIVE); KETONES,URINE 2+ (NEGATIVE); LEUKOCYTE ESTERASE ,URINE NEGATIVE (NEGATIVE); NITRITE,URINE NEGATIVE (NEGATIVE); PH,URINE 6 (4.5-8.0); PROTEIN,URINE 1+ (NEGATIVE); UROBILINOGEN,URINE NORMAL MG/DL (0.0-1.0)
[2018-09-04 18:46] LABS: COLOR,URINE YELLOW
[2018-09-04 18:48] LABS: ANION GAP 11 mmol/L (5-15); BLOOD UREA NITROGEN 8 mg/dL (7-18); CALCIUM 9.1 MG/DL (8.5-10.1); CARBON DIOXIDE 22 MMOL/L (21-32); CHLORIDE 106 MMOL/L (98-107); CREATININE 0.6 MG/DL (0.55-1.30); INR 0.9 (0.9-1.1); POTASSIUM 3.8 MMOL/L (3.5-5.1); SODIUM 139 MMOL/L (136-145)
[2018-09-04 19:00] LABS: ALANINE AMINOTRANSFERASE 6 U/L (12-78); ALBUMIN 2.6 G/DL (3.4-5.0); ALBUMIN/GLOBULIN RATIO 0.6 (1.0-2.7); ALKALINE PHOSPHATASE 57 U/L (46-116); ASPARTATE AMINO TRANSFERASE 11 U/L (15-37); BILIRUBIN,TOTAL 0.2 MG/DL (0.2-1.0)
--- NOTE | 2018-09-04 19:12 | Emergency Room Report ---
History of Present Illness General Chief Complaint: Pain Source: Patient Present Illness HPI 28-year-old female with history of multiple treatment and one DVT 1 year ago during her here complaining of pain in right thigh as well as cramping. Denies right calf pain or tenderness. Denies chest pain, shortness of breath, abdominal pain, nausea vomiting, vaginal spotting and bleeding. Denies vaginal discharge and dysuria. Patient reports that she is 6 months with a due date of December 07, 2018. 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 Denies all other associated symptoms. Allergies: Coded Allergies: PENICILLINS (Verified Allergy, Unknown, 06/09/16) Uncoded Allergies: AMOXILLINS (Allergy, Unknown, 04/10/16) Patient History Past Medical History: see triage record Past Surgical History: unable to obtain Pertinent Family History: none Last Menstrual Period: 03/02/18 Now: Yes : 4 Para: 2 Immunizations: UTD Reviewed Nursing Documentation: PMH: Agreed; PSxH: Agreed Nursing Documentation-PMH Past Medical History: No History, Except For Hx Cardiac Problems: No - Ectopic July 2015 Hx Cancer: No Hx Gastrointestinal Problems: No Hx Neurological Problems: No Review of Systems All Other Systems: negative except mentioned in HPI Physical Exam Vital Signs Date Time Temp Pulse Resp B/P (MAP) Pulse Ox O2 Delivery O2 Flow Rate FiO2 09/04/18 17:48 98.4 89 20 124/72 95 Room Air Sp02 EP Interpretation: reviewed, normal General Appearance: normal inspection, well appearing, no apparent distress Head: normocephalic, atraumatic Eyes: bilateral eye normal inspection, bilateral eye PERRL ENT: normal ENT inspection, hearing grossly normal, normal pharynx Neck: normal inspection, full range of motion, supple, no carotid bruits Respiratory: normal inspection, chest non-tender, lungs clear, no rhonchi, no respiratory distress, no wheezing Cardiovascular #1: normal inspection, regular rate, rhythm, no edema, no murmur , normal capillary refill Cardiovascular #2: 2+ dorsalis pedis (R), 2+ dorsalis pedis (L) Gastrointestinal: normal inspection, non tender, soft Rectal: deferred Genitourinary: no CVA tenderness Musculoskeletal: normal inspection, back normal, gait/station normal, normal range of motion, non-tender, no calf tenderness Neurologic: normal inspection, alert, oriented x3 Psychiatric: normal inspection, judgement/insight normal, memory normal Skin: no rash, palpation normal, normal color Lymphatic: normal inspection, no adenopathy Medical Decision Making PA Attestation All my diagnosis and treatment plans were reviewed ad discussed with my supervising physician Dr. Whitmore Diagnostic Impression: Primary Impression: Sciatica Additional Impression: UTI (urinary tract infection) ER Course 28-year-old female with history of multiple treatment and one DVT 1 year ago during her here complaining of pain in right thigh as well as cramping. Denies right calf pain or tenderness. Denies chest pain, shortness of breath, abdominal pain, nausea vomiting, vaginal spotting and bleeding. Denies vaginal discharge and dysuria. Patient reports that she is 6 months with a due date of December 07, 2018. 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 Denies all other associated symptoms. Ddx considered but are not limited to : Cellulitis, DVT, sciatica Vital signs: are WNL, pt. is afebrile H&PE are most consistent with:sciatica, UTI ORDERS: Venous duplex ultrasound of right lower extremity, CBC, beta-hCG, UA, CMP, ED INTERVENTIONS: None required at this time. DISCHARGE: At this time pt. is stable for d/c to home. Will provide printed patient care instructions, and any necessary prescriptions. Care plan and follow up instructions have been discussed with the patient prior to discharge. Follow-up with primary care provider and your METAL TESTER for further assessment evaluation if vaginal bleeding, cramping and spotting times the emergency room. White blood cell and leukocytes in urine EKG Diagnostic Results Rate: normal Rhythm: NSR ST Segments: no acute changes CT/MRI/US Diagnostic Results CT/MRI/US Diagnostic Results : Imaging Test Ordered: Right lower extremity venous duplex Impression FINDINGS: Deep veins: Unremarkable. No DVT in the visualized common femoral, femoral, proximal deep femoral or popliteal veins. The veins demonstrate normal color flow, are normally compressible, with normal phasic flow and/or augmentation response. Superficial veins: Unremarkable. No thrombus in the visualized great saphenous vein. Soft tissues: No acute findings. No popliteal cyst. IMPRESSION: Normal right lower extremity duplex venous ultrasound. Last Vital Signs Date Time Temp Pulse Resp B/P (MAP) Pulse Ox O2 Delivery O2 Flow Rate FiO2 09/04/18 17:48 98.4 107 20 124/72 (89) 95 Room Air Disposition: HOME, SELF-CARE Condition: Stable Scripts Acetaminophen* (TYLENOL EXTRA STRENGTH*) 500 Mg Tablet 500 MG ORAL Q8H PRN for Prn Headache/Temp > 101, #30 TAB 0 Refills Prov: Higinio Oseguera 09/04/18 Nitrofurantoin Monohyd/M-Cryst* (MACROBID 100 MG*) 100 Mg Capsule 100 MG ORAL EVERY 12 HOURS for 7 Days, #14 CAP Prov: Higinio Oseguera 09/04/18 Referrals: NON PHYSICIAN (PCP) Patient Instructions: Sciatica, [id number], Urinary Tract Infection, Easy-to- Read Additional Instructions: Follow-up with your METAL TESTER, for abdominal cramping, vaginal spotting 10 to the emergency room. Stay mobile, alternate between icing and heating the affected area, take medication as directed. Higinio Oseguera Sep 04, 2018 19:12
--- NOTE | 2018-09-04 20:03 | NUR ---
ED Nurse Note: patient resting in bed with daughter. complains of no distress
[2018-09-04] MEDS ORDERED: NITROFURANTOIN100 M2 ORAL (20:27)
[2018-09-04] MEDS ORDERED: TYLENOL EXTRA500 MG ORAL (20:27)
[2018-09-04 20:38] VITALS: BP 120/70
--- NOTE | 2018-09-04 20:51 | Diagnostic Imaging Report ---
EXAM: US Duplex Right Lower Extremity Veins CLINICAL HISTORY: PAIN TECHNIQUE: Real-time duplex ultrasound scan of the right lower extremity veins integrating B-mode two-dimensional vascular structure, Doppler spectral analysis, color flow Doppler imaging and compression. COMPARISON: No relevant prior studies available. FINDINGS: Deep veins: Unremarkable. No DVT in the visualized common femoral, femoral, proximal deep femoral or popliteal veins. The veins demonstrate normal color flow, are normally compressible, with normal phasic flow and/or augmentation response. Superficial veins: Unremarkable. No thrombus in the visualized great saphenous vein. Soft tissues: No acute findings. No popliteal cyst. IMPRESSION: Normal right lower extremity duplex venous ultrasound.
== END 2018-09-04 20:41 | disposition home or self-care (01) ==
LOC: EMR 18:14
DX: O23.42 Unspecified infection of urinary tract in pregnancy, second trimester (principal); Z3A.00 Weeks of gestation of pregnancy not specified; M54.30 Sciatica, unspecified side; Z86.718 Personal history of other venous thrombosis and embolism; Z88.0 Allergy status to penicillin
CPT/HCPCS: 36415; 80053; 81001; 84702; 85025; 85610; 85730; 86850; 86900; 86901; 87086; 93971; 99284

== ENCOUNTER 2018-12-17 15:02 | Emergency (ER) | payer MEDICAID ==
[~2018-12-17] VITALS: Ht 177.8 cm; Wt 118.8 kg
--- NOTE | 2018-12-17 15:15 | NUR ---
ED Nurse Note: Patient walked into ED c/o sub sternal chest pain that has been going on for the past day, rates her pain a 6/10 pain, denies any SOB. patient is currently on plavix and did give on 12/03/18. patient is alert and oriented x4 accompanied by her 3 kids. patient was placed on a vehicle monitor technician and is slightly tachycardic at 105. will continue to monitor
[2018-12-17] MEDS ORDERED: LOVENOX10 M4 SUBQ (15:17)
[2018-12-17 15:20] VITALS: BP 138/92
--- NOTE | 2018-12-17 15:43 | Emergency Room Report ---
History of Present Illness General Chief Complaint: Chest Pain Source: Patient, Medical Record Present Illness HPI 28-year-old female with a history of DVTs presenting with chest pain substernal sharp in nature nonradiating started 3 days ago worsening today. Patient notes she delivered a child on December 05. She reports using her Lovenox daily as prescribed. She denies lower extremity pain weakness or swelling. Allergies: Coded Allergies: AMOXICILLIN (Verified Allergy, Unknown, 12/17/18) PENICILLINS (Verified Allergy, Unknown, 06/09/16) Patient History Past Medical History: see triage record PMH Narrative DVT, ectopic Past Surgical History: none Last Menstrual Period: 03/20 Nursing Documentation-[facility] Past Medical History: No History, Except For Hx Cardiac Problems: No - Ectopic July 2015 Hx Cancer: No Hx Gastrointestinal Problems: No Hx Neurological Problems: No Review of Systems Constitutional: Denies: chills, fever Eye: Denies: blurred vision, double vision Respiratory: Reports: shortness of breath; Denies: cough, wheezing Cardiovascular: Reports: chest pain; Denies: edema, palpitations Gastrointestinal: Denies: abdominal pain, constipation, diarrhea, nausea, vomiting Musculoskeletal: Denies: back pain, joint swelling Skin: Denies: rash Neurological: Denies: headache, numbness Hematologic/Lymphatic: Denies: anemia, easy bruising Physical Exam Vital Signs Date Time Temp Pulse Resp B/P (MAP) Pulse Ox O2 Delivery O2 Flow Rate FiO2 12/17/18 15:13 98.1 93 18 138/92 (107) 96 Room Air Sp02 EP Interpretation: reviewed, normal General Appearance: no apparent distress, alert, GCS 15, non-toxic Head: normocephalic, atraumatic Eyes: bilateral eye normal inspection, bilateral eye PERRL ENT: hearing grossly normal, normal pharynx, no angioedema, normal voice Neck: full range of motion, supple/symm/no masses Respiratory: chest non-tender, lungs clear, normal breath sounds, speaking full sentences Cardiovascular #1: regular rate, rhythm, no edema Cardiovascular #2: 2+ radial (R), 2+ radial (L) Gastrointestinal: normal bowel sounds, non tender, soft, non-distended, no guarding, no rebound, overweight Rectal: deferred Genitourinary: normal inspection, no CVA tenderness Musculoskeletal: back normal, gait/station normal, normal range of motion, non- tender, no calf tenderness, other - No LE edema or erythema Neurologic: alert, oriented x3, responsive, motor strength/tone normal, sensory intact, speech normal Psychiatric: judgement/insight normal, memory normal, mood/affect normal, no suicidal/homicidal ideation Lymphatic: no adenopathy Medical Decision Making ER Course 28yo F with hx of DVT, pw chest pain, sp , compliant with anticoagulation. Differential include ACS, DVT, PE, Pneumothorax, Pneumonia, Sepsis Patients EKG reviewed finding no signs of ischemia Pt had CT PE performed showing no acute pulmonary embolus. Pt discharged with follow up at PMD, recommended to continue anticoagulation as prescribed Pt stable for discharge given normal vital signs including normotensive, no hypoxia and no signs of respiratory distress Pt understands warning signs on when to return to ED for further evaluation and follow up instructions. EKG Diagnostic Results Rate: normal - 92 Rhythm: NSR ST Segments: no acute changes Rhythm Strip Diag. Results EP Interpretation: yes Rate: 90 Rhythm: NSR CT/MRI/US Diagnostic Results CT/MRI/US Diagnostic Results : Impression Procedure: CTA Chest w Contrast EXAM: CT Angiography Chest With Intravenous Contrast CLINICAL HISTORY: CP TECHNIQUE: Axial computed tomographic angiography images of the chest with intravenous contrast. CTDI is 238.5 mGy and DLP is 1113.9 mGy-cm. One or more of the following dose reduction techniques were used: automated exposure control, adjustment of the mA and or kV according to patient size, use of iterative reconstruction technique. MIP reconstructed images were created and reviewed. Coronal and sagittal reformatted images were created and reviewed. COMPARISON: No relevant prior studies available. FINDINGS: Pulmonary arteries: Suboptimal opacification of the pulmonary arteries. No obvious centrally occlusive pulmonary embolus is identified. No significant pulmonary arterial dilation or evidence for right heart strain. Aorta: No acute findings. No thoracic aortic aneurysm. Lungs: No airspace consolidation. Likely punctate granuloma in the right lower lobe. Pleural space: Unremarkable. No significant effusion. No pneumothorax. Heart: Unremarkable. No cardiomegaly. No significant pericardial effusion. Bones joints: No acute fracture. No dislocation. Soft tissues: Unremarkable. Lymph nodes: Unremarkable. No enlarged lymph nodes. IMPRESSION: Suboptimal opacification within the pulmonary arterial system. No obvious centrally occlusive embolus is identified. No acute cardiopulmonary findings. Dictated By: Kip Kolb MD Electronically Signed By: Kip Kolb MD Signed Date/Time 12/17/18 1816 CC: Dean Franklin M.D. Last Vital Signs Date Time Temp Pulse Resp B/P (MAP) Pulse Ox O2 Delivery O2 Flow Rate FiO2 12/17/18 15:13 98.1 93 18 138/92 (107) 96 Room Air Disposition: HOME, SELF-CARE Condition: Stable Dean Franklin M.D. Dec 17, 2018 15:43
[2018-12-17] MEDS ORDERED: Aspirin Baby 81mg ORAL ONE (15:45)
[2018-12-17] MEDS ORDERED: Omnipaue 350mg/ml 100ml vial INJ PRN (15:45)
[2018-12-17 16:07] LABS: BASOPHILS % (AUTO) 0.8 % (0.0-2.0); EOSINOPHILS % (AUTO) 5.3 % (0.0-3.0); HEMATOCRIT 48.2 % (37.0-47.0); HEMOGLOBIN 16.4 G/DL (12.0-16.0); LYMPHOCYTES % (AUTO) 32.5 % (20.0-45.0); MEAN CORPUSCULAR VOLUME 88 FL (80-99); MONOCYTES % (AUTO) 5.2 % (1.0-10.0); NEUTROPHILS % (AUTO) 56.2 % (45.0-75.0); PLATELET COUNT 326 K/UL (150-450); RED BLOOD COUNT 5.49 M/UL (4.20-5.40); RED CELL DISTRIBUTION WIDTH 10.7 % (11.6-14.8); WHITE BLOOD COUNT 9.9 K/UL (4.8-10.8)
[2018-12-17 16:15] LABS: ANION GAP 9 mmol/L (5-15); BLOOD UREA NITROGEN 7 mg/dL (7-18); CALCIUM 9.4 MG/DL (8.5-10.1); CARBON DIOXIDE 26 MMOL/L (21-32); CHLORIDE 107 MMOL/L (98-107); CREATININE 0.8 MG/DL (0.55-1.30); POTASSIUM 3.8 MMOL/L (3.5-5.1); SODIUM 142 MMOL/L (136-145)
[2018-12-17 16:41] LABS: ALANINE AMINOTRANSFERASE 18 U/L (12-78); ALBUMIN 3.2 G/DL (3.4-5.0); ALBUMIN/GLOBULIN RATIO 0.7 (1.0-2.7); ALKALINE PHOSPHATASE 101 U/L (46-116); ASPARTATE AMINO TRANSFERASE 15 U/L (15-37); BILIRUBIN,TOTAL 0.2 MG/DL (0.2-1.0); CKMB 0.8 NG/ML (0.0-3.6); CREATINE KINASE 102 U/L (26-308)
--- NOTE | 2018-12-17 18:17 | Diagnostic Imaging Report ---
EXAM: CT Angiography Chest With Intravenous Contrast CLINICAL HISTORY: CP TECHNIQUE: Axial computed tomographic angiography images of the chest with intravenous contrast. CTDI is 238.5 mGy and DLP is 1113.9 mGy-cm. One or more of the following dose reduction techniques were used: automated exposure control, adjustment of the mA and or kV according to patient size, use of iterative reconstruction technique. MIP reconstructed images were created and reviewed. Coronal and sagittal reformatted images were created and reviewed. COMPARISON: No relevant prior studies available. FINDINGS: Pulmonary arteries: Suboptimal opacification of the pulmonary arteries. No obvious centrally occlusive pulmonary embolus is identified. No significant pulmonary arterial dilation or evidence for right heart strain. Aorta: No acute findings. No thoracic aortic aneurysm. Lungs: No airspace consolidation. Likely punctate granuloma in the right lower lobe. Pleural space: Unremarkable. No significant effusion. No pneumothorax. Heart: Unremarkable. No cardiomegaly. No significant pericardial effusion. Bones joints: No acute fracture. No dislocation. Soft tissues: Unremarkable. Lymph nodes: Unremarkable. No enlarged lymph nodes. IMPRESSION: Suboptimal opacification within the pulmonary arterial system. No obvious centrally occlusive embolus is identified. No acute cardiopulmonary findings.
[2018-12-17 19:21] VITALS: BP 130/88
--- NOTE | 2018-12-17 19:21 | NUR ---
ER DISCHARGE NOTE: Patient is cleared to be discharged per ERMD, pt is aox4, on room air, with stable vital signs. pt was given dc and prescription instructions, pt was able to verbalize understanding, pt id band and iv site removed without complications. pt is able to ambulate with steady gait. pt took all belongings.
--- NOTE | 2018-12-20 14:06 | Cardiology Report ---
APPROVED REPORT EKG Measurement Heart [id number] Normal sinus rhythm Normal ECG
== END 2018-12-17 19:23 | disposition home or self-care (01) ==
LOC: EMR 16:20
DX: R07.9 Chest pain, unspecified (principal); Z86.718 Personal history of other venous thrombosis and embolism; Z79.01 Long term (current) use of anticoagulants; Z88.0 Allergy status to penicillin; R06.02 Shortness of breath
CPT/HCPCS: 36415; 71275; 80053; 82550; 82553; 83880; 84484; 85025; 85379; 93005; Q9967; Z7502; 99284

== ENCOUNTER 2019-05-25 21:22 | Emergency (ER) | payer MEDICAID ==
[~2019-05-25] VITALS: Ht 177.8 cm; Wt 121.6 kg
[~2019-05-25 21:22] MED LIST changes: +LOVENOX10 M4 SUBQ
--- NOTE | 2019-05-25 21:30 | NUR ---
ED Nurse Note: PT WALKED TO ED C/O LEFT LEG PAIN X4DAYS. PT STATES 6/10 ACHY PAIN AT REST. PT DENIES SWELLING OR REDNESS. VSS, NAD, AAOX4, AMBULATORY. DENIES FEVER, COUGH, OR SOB. PT HX DVT AND PE. ERMD AT BEDSIDE
--- NOTE | 2019-05-25 21:40 | NUR ---
ED Nurse Note: PT REFUSED TO PROVIDE URINE SAMPLE. ERMD AWARE.
[2019-05-25] MEDS ORDERED: IBUPROFEN600 MG ORAL ×2 (21:44)
[2019-05-25] MEDS ORDERED: ACETAMINOPHEN500 M3 ORAL ×2 (21:46)
[2019-05-25] MEDS ORDERED: IBUPROFEN400 M1 PO ×2 (21:46)
[2019-05-25 21:50] VITALS: BP 133/77
--- NOTE | 2019-05-25 21:50 | NUR ---
ER DISCHARGE NOTE: Patient is cleared to be discharged per ERMD, pt is aox4, on room air, with stable vital signs. pt was given dc and prescription instructions, pt was able to verbalize understanding, pt id band removed without complications. pt is able to ambulate with steady gait. pt took all belongings.
--- NOTE | 2019-05-25 22:51 | Emergency Room Report ---
History of Present Illness General Chief Complaint: Lower Extremity Injury Source: Medical Record Present Illness HPI 28-year-old female presents after increased left-sided knee pain. She states is been present for approximately 3 to 4 days. She reports having pain to the anterior and posterior knee. Reports having recent viral upper respiratory infection. Denies any fever. Increased pain with ambulation. She states that she had not been having any numbness or weakness. Denies any diarrhea. Denies any increased leg swelling. States she has prior history of deep venous thrombosis and is currently taking aspirin. She denies being . She is not on control pills. Allergies: Coded Allergies: AMOXICILLIN (Verified Allergy, Unknown, 12/17/18) PENICILLINS (Verified Allergy, Unknown, 06/09/16) COVID-19 Screening Contact w/high risk pt: No Recent Travel to affected area: No Experienced COVID-19 symptoms?: No Patient History Past Medical History: see triage record Last Menstrual Period: 05/04 Now: No : 4 Para: 3 Reviewed Nursing Documentation: PMH: Agreed; PSxH: Agreed Nursing Documentation-PMH Hx Cardiac Problems: No - Ectopic July 2015 Hx Cancer: No Hx Gastrointestinal Problems: No Hx Neurological Problems: No Review of Systems All Other Systems: negative except mentioned in HPI Physical Exam Vital Signs Date Time Temp Pulse Resp B/P (MAP) Pulse Ox O2 Delivery O2 Flow Rate FiO2 05/25/19 21:28 98.2 111 16 130/82 (98) 97 Room Air General Appearance: well appearing, no apparent distress, alert, GCS 15 Head: normocephalic, atraumatic ENT: hearing grossly normal, normal voice Neck: full range of motion, supple Respiratory: chest non-tender, lungs clear, normal breath sounds, no respiratory distress, speaking full sentences Cardiovascular #1: normal inspection Gastrointestinal: normal inspection Musculoskeletal: normal inspection, no calf tenderness, other - Left knee prepatellar swelling no laxity Neurologic: alert, motor strength/tone normal, manager business banking III-XII nml as tested, oriented x3, normal gait Psychiatric: mood/affect normal Skin: no rash Medical Decision Making Diagnostic Impression: Primary Impression: Arthralgia of left knee ER Course Patient presented for left knee pain. Differential diagnosis include was not limited to arthritis, septic joint, viral infection among others. Patient has a benign exam and does not appear to require any imaging or laboratory testing at this time. Patient does not appear to have any evidence of swelling or tenderness to the posterior calf. Knee appears to be somewhat swollen but does not show any evidence of warmth or erythema consistent with septic joint. Patient appears to be stable for outpatient evaluation. She was given prescription for medication for symptomatic treatment. She advised to continue to ice her knee and to follow-up with her primary care physician for recheck. Advised to return if worse. The patient is advised to follow up with primary care doctor in 1-2 days. Patient is advised to return if any worsening condition or if any changes in status that are concerning. This report is dictated with [employer] fitting room checker software which may occasionally lead to discrepancies related to use of this software. Last Vital Signs Date Time Temp Pulse Resp B/P (MAP) Pulse Ox O2 Delivery O2 Flow Rate FiO2 05/25/19 21:50 98.2 97 16 133/77 97 Room Air Status: improved Disposition: HOME, SELF-CARE Condition: Stable Scripts Ibuprofen (Ibuprofen) 400 Mg Tablet 400 MG PO EVERY 8 HOURS, #30 TAB Prov: Alex Whitmore MD 05/25/19 Acetaminophen* (ACETAMINOPHEN EXTRA STRENGTH*) 500 Mg Tablet 500 MG ORAL Q8H PRN for Fever/Headache/Mild Pain, #30 TAB Prov: Alex Whitmore MD 05/25/19 Referrals: NON PHYSICIAN (PCP) Patient Instructions: Arthritis Additional Instructions: Follow up with your doctor for recheck. Return for increased pain, shortness of breath or other concerns. Alex Whitmore MD May 25, 2019 22:50
== END 2019-05-25 21:50 | disposition home or self-care (01) ==
LOC: EMR 21:40
DX: M25.562 Pain in left knee (principal); Z88.0 Allergy status to penicillin; R22.42 Localized swelling, mass and lump, left lower limb
CPT/HCPCS: 99282

== ENCOUNTER 2019-05-30 13:46 | Emergency (ER) | payer MEDICAID ==
[~2019-05-30] VITALS: Ht 177.8 cm; Wt 117.9 kg
[~2019-05-30 13:46] MED LIST changes: +ACETAMINOPHEN500 M3 ORAL; +IBUPROFEN400 M1 PO
--- NOTE | 2019-05-30 14:15 | Emergency Room Report ---
History of Present Illness General Chief Complaint: Pain Source: Patient Present Illness HPI 28-year-old female with history of left knee pain without any fall or injury x2 weeks here complaining of worsening pain. Patient is morbidly obese. Has been taking ibuprofen and Tylenol with mild relief. Reports that she has not been keeping mobile at home due to quarantine. Denies any fall or injury at this time. Denies any calf tenderness. Denies chest pain shortness of breath. Denies fever and chills. Reports that 2 weeks ago she had a minor cold which she recovered from. She no longer coughing no fever no chest pain or shortness of breath. Denies at this time. Allergies: Coded Allergies: AMOXICILLIN (Verified Allergy, Unknown, 12/17/18) PENICILLINS (Verified Allergy, Unknown, 06/09/16) COVID-19 Screening Contact w/high risk pt: No Recent Travel to affected area: No Experienced COVID-19 symptoms?: No Patient History Past Medical History: see triage record Past Surgical History: none Pertinent Family History: none Last Menstrual Period: May 05, 2019 Now: No : 4 Para: 3 Immunizations: UTD Reviewed Nursing Documentation: PMH: Agreed; PSxH: Agreed Nursing Documentation-PMH Past Medical History: No Stated History Hx Cardiac Problems: No - Ectopic July 2015 Hx Cancer: No Hx Gastrointestinal Problems: No Hx Neurological Problems: No Review of Systems All Other Systems: negative except mentioned in HPI Physical Exam Vital Signs Date Time Temp Pulse Resp B/P (MAP) Pulse Ox O2 Delivery O2 Flow Rate FiO2 05/30/19 13:58 98.4 94 17 111/75 (87) 94 Room Air Sp02 EP Interpretation: reviewed, normal General Appearance: no apparent distress, alert, GCS 15, non-toxic Head: normocephalic, atraumatic Eyes: bilateral eye normal inspection, bilateral eye PERRL ENT: hearing grossly normal, normal pharynx, no angioedema, normal voice Neck: full range of motion, supple, supple/symm/no masses Respiratory: chest non-tender, lungs clear, normal breath sounds, no rhonchi, speaking full sentences Cardiovascular #1: regular rate, rhythm, no edema Gastrointestinal: soft Rectal: deferred Genitourinary: no CVA tenderness Musculoskeletal: back normal, digits/nails normal, no calf tenderness, non- tender Neurologic: alert, motor strength/tone normal, oriented x3, sensory intact, responsive, speech normal Psychiatric: judgement/insight normal, memory normal, mood/affect normal, no suicidal/homicidal ideation Skin: no rash Lymphatic: no adenopathy Medical Decision Making PA Attestation All my diagnosis and treatment plans were reviewed ad discussed with my supervising physician Dr. Luna Diagnostic Impression: Primary Impression: Knee sprain ER Course 28-year-old female with history of left knee pain without any fall or injury x2 weeks here complaining of worsening pain. Patient is morbidly obese. Has been taking ibuprofen and Tylenol with mild relief. Reports that she has not been keeping mobile at home due to quarantine. Denies any fall or injury at this time. Denies any calf tenderness. Denies chest pain shortness of breath. Denies fever and chills. Reports that 2 weeks ago she had a minor cold which she recovered from. She no longer coughing no fever no chest pain or shortness of breath. Denies at this time. After visiting discharge patient patient tells me that she has history of blood clot in the same leg x2 years. Reports that she stopped taking blood thinner a year ago. Reports last summer she had DVT did not have the typical presentation of DVT. She wants to know if she is having a blood clot or not. Patient reports that she also had that previously however not also indicating that she has history of DVT. Ddx considered but are not limited to: Knee sprain, strain, fracture, contusion , meniscus tear injury Vital signs: are WNL, pt. is afebrile H&PE are most consistent with: Left knee sprain ORDERS: Knee x-ray as patient kept insisting on having an x-ray done otherwise she is going to coming back, Voltaren gel, Tylenol, Robaxin, venous duplex ultrasound left lower extremity ER intervention: None DISCHARGE: At this time pt. is stable for d/c to home. Will provide printed patient care instructions, and any necessary prescriptions. Care plan and follow up instructions have been discussed with the patient prior to discharge. Alternate between icing heating affected area, take medication as directed, needed follow-up with primary doctor, if worsening symptoms return to emergency room Other X-Ray Diagnostic Results Other X-Ray Diagnostic Results : X-Ray ordered: knee x ray # of Views/Limited Vs Complete: 3 View Indication: Pain EP Interpretation: Yes GRISELDA Xray: Interpretation reviewed, by supervising MD, and agrees with findings. Interpretation: no dislocation, no soft tissue swelling, no fractures Impression: No acute disease Electronically Signed by: Higinio Koenig PA-C CT/MRI/US Diagnostic Results CT/MRI/US Diagnostic Results : Imaging Test Ordered: Venous duplex ultrasound left lower extremity Impression No DVT Last Vital Signs Date Time Temp Pulse Resp B/P (MAP) Pulse Ox O2 Delivery O2 Flow Rate FiO2 05/30/19 13:58 98.4 94 17 111/75 (87) 94 Room Air Disposition: HOME, SELF-CARE Condition: Stable Scripts Diclofenac Sodium (VOLTAREN) 100 Gm Gel..gram. 2 GM TP TID, #100 GM Prov: Higinio Oseguera 05/30/19 Methocarbamol* (ROBAXIN-500*) 500 Mg Tablet 500 MG ORAL TID PRN for For Pain, #15 TAB 0 Refills Prov: Higinio Oseguera 05/30/19 Acetaminophen* (TYLENOL EXTRA STRENGTH*) 500 Mg Tablet 500 MG ORAL Q8H PRN for Prn Headache/Temp > 101, #30 TAB 0 Refills Prov: Higinio Oseguera 05/30/19 Patient Instructions: Knee Sprain, [id number] Additional Instructions: Take medication as directed, follow-up primary care doctor, alternate between icing heating affected area, at this time no further imaging can be done in the emergency department you need to follow-up primary doctor for referral to youth career specialist. Higinio Oseguera May 30, 2019 14:15
[2019-05-30 14:16] VITALS: BP 111/75
[2019-05-30] MEDS ORDERED: ROBAXIN-500MG ORAL (14:43)
[2019-05-30] MEDS ORDERED: VOLTAREN100 G1 TP (14:43)
[2019-05-30] MEDS ORDERED: TYLENOL EXTRA500 MG ORAL (14:43)
[2019-05-30 15:45] VITALS: BP 112/78
--- NOTE | 2019-05-30 16:38 | Diagnostic Imaging Report ---
INDICATION: Knee Pain COMPARISON: None 3 views of the left knee were obtained. FINDINGS: No acute fracture, malalignment, or joint effusion are identified. Impression: Negative for acute injury
--- NOTE | 2019-05-30 16:40 | Diagnostic Imaging Report ---
Indication: Left lower extremity pain and swelling. Technique: Duplex Doppler imaging performed from the left common femoral vein to the popliteal vein. FINDINGS: Normal compressibility demonstrated from the common femoral vein to the popliteal vein. Respiratory phasicity and good augmentation demonstrated on waveform analysis. There is no evidence of thrombosis. IMPRESSION: No evidence of deep venous thrombosis within the left lower extremity.
== END 2019-05-30 15:45 | disposition home or self-care (01) ==
LOC: EMR 14:20
DX: S83.92XA Sprain of unspecified site of left knee, initial encounter (principal); X58.XXXA Exposure to other specified factors, initial encounter; Y92.9 Unspecified place or not applicable; Z88.0 Allergy status to penicillin
CPT/HCPCS: 73562; 93971; Z7502; 99284

== ENCOUNTER 2019-10-08 15:03 | Emergency (ER) | payer MEDICAID ==
[~2019-10-08] VITALS: Ht 177.8 cm; Wt 113.4 kg
[~2019-10-08 15:03] MED LIST changes: +ROBAXIN-500MG ORAL; +VOLTAREN100 G1 TP
--- NOTE | 2019-10-08 15:15 | NUR ---
ED Nurse Note: patient walked into ED from home for left ear discomfort and swelling for 3 days. patient reports pain 6/10. patient reports no discharge. patient is alert awake x 4 ambulatory steady gait, breathing unlabored and even, speaking in full sentences. Josy VILLALOBOS at bedside.
--- NOTE | 2019-10-08 15:21 | Emergency Room Report ---
History of Present Illness General Chief Complaint: Earache Source: Patient Present Illness HPI 29 YO female presents to the ED c/o 08/09 in severity pain and tenderness of the left ear x 3 days. She denies fevers or chills. Pt. reports using q-tips. She denies ear fb. She denies ear d/c. she denies loss of hearing or decreased hearing. She denies GRANADOS or visual changes. Denies nasal congestion. She denies swollen tender lymph nodes. 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-19 Testing performed NEWS REPORTER: No Patient History Past Medical History: see triage record Past Surgical History: none Pertinent Family History: none Last Menstrual Period: 09/29 Now: No Reviewed Nursing Documentation: PMH: Agreed; PSxH: Agreed Nursing Documentation-PMH Past Medical History: No History, Except For Hx Cardiac Problems: No - Ectopic July 2015 Hx Cancer: No Hx Gastrointestinal Problems: No Hx Neurological Problems: No Review of Systems All Other Systems: negative except mentioned in HPI Physical Exam Vital Signs Date Time Temp Pulse Resp B/P (MAP) Pulse Ox O2 Delivery O2 Flow Rate FiO2 10/08/19 15:07 98.6 103 17 125/84 (98) 95 Room Air Sp02 EP Interpretation: reviewed, normal General Appearance: no apparent distress, alert, GCS 15, non-toxic Head: normocephalic, atraumatic Eyes: bilateral eye normal inspection, bilateral eye PERRL ENT: hearing grossly normal, normal pharynx, normal voice, uvula midline, other - Do not drink alcohol, drive, or operate heavy machinery while taking Tylenol # 3 as this may cause drowsiness. Neck: full range of motion, no meningismus, no bony tend Respiratory: lungs clear, normal breath sounds, speaking full sentences Cardiovascular #1: regular rate, rhythm Musculoskeletal: back normal, normal range of motion, gait/station normal, non- tender Neurologic: alert, motor strength/tone normal, oriented x3, sensory intact, responsive, speech normal Psychiatric: judgement/insight normal Skin: normal color Lymphatic: no adenopathy Medical Decision Making PA Attestation Dr. Kolb is my supervising Physician whom patient management has been discussed with. Diagnostic Impression: Primary Impression: Otitis externa Qualified Codes: H60.502 - Unspecified acute noninfective otitis externa, left ear ER Course 29 YO female presents to the ED c/o 08/09 in severity pain and tenderness of the left ear x 3 days. She denies fevers or chills. Pt. reports using q-tips. She denies ear fb. She denies ear d/c. she denies loss of hearing or decreased hearing. She denies GRANADOS or visual changes. Denies nasal congestion. She denies swollen tender lymph nodes. Ddx considered but are not limited to OM, OE, mastoiditis, TM perforation, FB, shingles just to name a few. Vital signs: are WNL, pt. is afebrile . H&PE are most consistent with otitis Externa ORDERS: none required at this time, the diagnosis is clinical -OTOSCOPY: Left ear canal is macerated, some external ear tenderness to palpation, creamy white d/c noted in the left ear canal. the TM is WNL. ED INTERVENTIONS: -Tylenol PO DISCHARGE: At this time pt. is stable for d/c to home. With PO ABX. Will provide printed patient care instructions, and any necessary prescriptions. Care plan and follow up instructions have been discussed with the patient prior to discharge. Last Vital Signs Date Time Temp Pulse Resp B/P (MAP) Pulse Ox O2 Delivery O2 Flow Rate FiO2 10/08/19 15:07 98.6 103 17 125/84 (98) 95 Room Air Disposition: HOME, SELF-CARE Condition: Stable Scripts Acetaminophen With Codeine (T#3) (TYLENOL #3 TAB*) Y Tab 1 TAB ORAL Q8HR PRN for For Pain, #3 TAB Prov: Josy Fierro 10/08/19 Ciprofloxacin/Hydrocortisone (CIPRO HC OTIC SUSPENSION) 10 Ml Drops.susp 10 ML OT TID for 5 Days, #10 ML Prov: Josy Fierro 10/08/19 Referrals: [facility],REFERRING (PCP) Marcel Stone [facility]. [facility] Patient Instructions: Otitis Externa, [id number] Additional Instructions: Take medications as directed. Do not drink alcohol, drive, or operate heavy machinery while taking Tylenol # 3 as this may cause drowsiness. Follow up with a Primary Care Provider in 3-5 days, even if your symptoms have resolved. --Please review list of primary care clinics, if you do not already have a primary care provider Return sooner to ED if new symptoms occur, or current symptoms become worse. - Please note that this Emergency Department Report was dictated using [employer]it[employer] digger technology software, occasionally this can lead to erroneous entry secondary to interpretation by the dictation equipment. Josy Fierro Oct 08, 2019 15:21
[2019-10-08] MEDS ORDERED: CIPRO HC OTIC S10 M1 OT (15:24)
[2019-10-08] MEDS ORDERED: ACETAMINOPHEN-1 EAC1 ORAL (15:24)
[2019-10-08 15:31] VITALS: BP 125/84
--- NOTE | 2019-10-08 15:35 | NUR ---
ER DISCHARGE NOTE: Patient is cleared to be discharged per BENJAMIN EDMOND, pt is aox4, on room air, with stable vital signs. pt was given dc and prescription instructions, pt was able to verbalize understanding, pt id band removed without complications. pt is able to ambulate with steady gait. pt took all belongings.
[2019-10-08 15:40] VITALS: BP 125/84
== END 2019-10-08 15:40 | disposition home or self-care (01) ==
LOC: EMR 15:18
DX: H60.502 Unspecified acute noninfective otitis externa, left ear (principal); Z88.0 Allergy status to penicillin
CPT/HCPCS: 99282

== ENCOUNTER 2019-11-18 11:56 | Emergency (ER) | payer MEDICAID ==
[~2019-11-18] VITALS: Ht 177.8 cm; Wt 117.0 kg
[~2019-11-18 11:56] MED LIST changes: +ACETAMINOPHEN-1 EAC1 ORAL; +CIPRO HC OTIC S10 M1 OT
[2019-11-18 12:15] VITALS: BP 124/80
[2019-11-18] MEDS ORDERED: Omnipaque 350 100ml vial INJ PRN (12:15)
--- NOTE | 2019-11-18 12:28 | Emergency Room Report ---
History of Present Illness General Chief Complaint: Chest Pain Source: Patient (Kendall Leiva MD) Present Illness HPI Disclaimer: Please note that this report is being documented using [employer] technology. This can lead to erroneous entry secondary to incorrect interpretat ion by the dictating instrument. HPI: 29-year-old female history of tobacco use and obesity presents for evaluation of chest and back pain. Approximate 1 hour ago the patient states she was walking down the street when she felt a tightness in the left chest. Pain initially did not radiate but then began to spread to the back. She states it goes through the chest feels like a pulling sensation. She denies the sensation of tearing. She denies lightheadedness, shortness of breath. She states she felt nauseous initially and had one episode of emesis. Nausea has resolved. Denies abdominal pain. Denies fever or chills recently. Denies recent cough or congestion. Denies family history of connective tissue disorder such as Marfan's, denies history of sudden cardiac in young people in her family. PMH: Obesity PSH: Denied Allergies: Penicillins Social Hx: Regular tobacco use (Kendall Leiva MD) 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-19 Testing performed STATION CAPTAIN: No (Kendall Leiva MD) Patient History Last Menstrual Period: 10/30/19 Now: No (Kendall Leiva MD) Nursing Documentation-PMH Past Medical History: No History, Except For Hx Cardiac Problems: No - Ectopic July 2015 Hx Cancer: No Hx Gastrointestinal Problems: No Hx Neurological Problems: No (Kendall Leiva MD) Review of Systems All Other Systems: negative except mentioned in HPI (Kendall Leiva MD) Physical Exam Vital Signs Date Time Temp Pulse Resp B/P (MAP) Pulse Ox O2 Delivery O2 Flow Rate FiO2 11/18/19 12:00 98.2 77 18 124/80 (95) 99 Room Air General: Awake and alert, no acute distress HEENT: NC/AT. EOMI. Chest Wall: Tender palpation over the left chest wall without palpable deformity or crepitus. Cardiovascular: RRR. S1 and S2 normal. No murmur appreciated Resp: Normal work of breathing. No cough, wheezing or crackles appreciated Abdomen: Abdomen is soft, nondistended. Nontender Skin: Intact. No abrasions, laceration or rash over the exposed skin MSK: Normal tone and bulk. Moving all extremities. No obvious deformity. Neuro: Awake and alert. Mentating appropriately. Back: No tenderness step-off or deformity in the cervical, thoracic or lumbosacral spine. (Kendall Leiva MD) Medical Decision Making ER Course 29-year-old female presents for evaluation sudden onset chest and back pain. Differential includes was not limited to musculoskeletal pain, bronchitis, ACS, pneumonia, thoracic aneurysm, dissection, muscle spasm among others. (Kendall Leiva MD) ER Course Patient was signed out to me by the previous ED physician. She remained hemodynamically stable in the emergency department and was requesting to leave. Results of the CTA chest were unremarkable and patient did not have any evidence of pulmonary embolism or aortic dissection. She was given strict return precautions to come back to emergency department if her symptoms worsen. She expressed understanding and was discharged. (Bear Carias M.D.) EKG Diagnostic Results EKG Time: 12:21 Rate: normal Rhythm: NSR ST Segments: no acute changes Other Impression Sinus rhythm, normal axis, normal intervals, inferior Q waves (Kendall Leiva MD) Rhythm Strip Diag. Results Rhythm Strip Time: 12:21 EP Interpretation: yes Rate: 70s Rhythm: NSR, no PVC's, no ectopy (Kendall Leiva MD) Last Vital Signs Date Time Temp Pulse Resp B/P (MAP) Pulse Ox O2 Delivery O2 Flow Rate FiO2 11/18/19 12:00 98.2 77 18 124/80 (95) 99 Room Air (Kendall Leiva MD) Scripts Acetaminophen* (TYLENOL EXTRA STRENGTH*) 500 Mg Tablet 500 MG ORAL Q8H PRN for Prn Headache/Temp > 101, #30 TAB 0 Refills Prov: Kendall Leiva MD 11/18/19 Referrals: [facility],REFERRING (PCP) Kendall Leiva MD Nov 18, 2019 12:28 Bear Carias M.D. Nov 18, 2019 21:23
[2019-11-18 12:50] LABS: BASOPHILS % (AUTO) 1.6 % (0.0-2.0); EOSINOPHILS % (AUTO) 4.7 % (0.0-3.0); HEMATOCRIT 43.9 % (37.0-47.0); HEMOGLOBIN 14.9 G/DL (12.0-16.0); LYMPHOCYTES % (AUTO) 38.1 % (20.0-45.0); MEAN CORPUSCULAR VOLUME 89 FL (80-99); MONOCYTES % (AUTO) 6.9 % (1.0-10.0); NEUTROPHILS % (AUTO) 48.8 % (45.0-75.0); PLATELET COUNT 294 K/UL (150-450); RED BLOOD COUNT 4.95 M/UL (4.20-5.40); RED CELL DISTRIBUTION WIDTH 12.3 % (11.6-14.8); WHITE BLOOD COUNT 5.8 K/UL (4.8-10.8)
[2019-11-18 13:06] LABS: ANION GAP 9 mmol/L (5-15); BLOOD UREA NITROGEN 12 mg/dL (7-18); CALCIUM 9.2 MG/DL (8.5-10.1); CARBON DIOXIDE 27 MMOL/L (21-32); CHLORIDE 102 MMOL/L (98-107); CREATININE 0.8 MG/DL (0.55-1.30); POTASSIUM 3.8 MMOL/L (3.5-5.1); SODIUM 138 MMOL/L (136-145)
[2019-11-18 13:11] LABS: ALANINE AMINOTRANSFERASE 23 U/L (12-78); ALBUMIN 3.6 G/DL (3.4-5.0); ALBUMIN/GLOBULIN RATIO 0.8 (1.0-2.7); ALKALINE PHOSPHATASE 70 U/L (46-116); ASPARTATE AMINO TRANSFERASE 21 U/L (15-37); BILIRUBIN,TOTAL 0.4 MG/DL (0.2-1.0)
[2019-11-18] MEDS ORDERED: TYLENOL EXTRA500 MG ORAL (13:17)
--- NOTE | 2019-11-18 15:43 | Diagnostic Imaging Report ---
CT ANGIOGRAM CHEST AND ABDOMEN, PELVIS WITH CONTRAST INDICATION: Chest pain TECHNIQUE: Continuous helical transaxial imaging of the chest, abdomen, and pelvis was obtained after administration of intravenous contrast in the arterial phase. Coronal 2-D reformats were also obtained. Study obtained in a Siemens sensation [address] Automatic Exposure Control was utilized. 3-D reconstructions were also produced for review. Total Dose length Product (DLP): 1026.[address] Dose Index Volume (CTDIvol): 129.1 mGy COMPARISON: CTA chest dated 12/17/2018 FINDINGS: The study is limited due to motion artifact, especially of the upper abdomen. Vasculature: Thoracic and abdominal aortas are normal in caliber. Evaluation of the ascending aorta is limited due to motion artifact. There is variant mesenteric branching anatomy, with a replaced common hepatic arising from the SMA. Duplicated left renal arteries, widely patent. No evidence of central or large segmental pulmonary embolus. Lungs and pleura:: No airspace consolidation, pneumothorax, or pleural effusion. Heart and mediastinum:: Thyroid gland is mildly heterogeneous. Heart is not enlarged. No pericardial effusion. Airway:: Patent. Hepatobiliary:: Gallbladder is contracted, limiting evaluation. Genitourinary:: No hydronephrosis or nephrolithiasis. Adrenals:: Unremarkable Pancreas:: Unremarkable Gastrointestinal:: Appendix is normal. No evidence of obstruction. There are prominent nonenlarged pericecal lymph nodes. Spleen: : Unremarkable. Peritoneum:: Trace free fluid layering the pelvis, which may be physiologic in a patient of this age. There is rectus sheath muscle diastases with broad-based herniation of the ventral lower peritoneum containing nonobstructed loop of colon. Lymph nodes:: No lymphadenopathy. Bones and soft tissue:There are multilevel discogenic degenerative changes of the visualized spine. IMPRESSION: Limit evaluation in the absence of intravenous contrast. Within these limitations: 1. No evidence of aortic aneurysm or dissection. 2. No evidence of central or large segmental pulmonary malaise and; evaluation of smaller distal pulmonary arteries is limited due to motion artifact. 3. 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 The CT scanner at [facility] is accredited by the [employer] and the scans are performed using protocols designed to limit radiation exposure to as low as reasonably achievable to attain images of sufficient resolution adequate for diagnostic evaluation
[2019-11-18 15:56] VITALS: BP 124/80
== END 2019-11-18 15:59 | disposition home or self-care (01) ==
LOC: EMR 12:14
DX: R07.9 Chest pain, unspecified (principal); M54.9 Dorsalgia, unspecified; Z88.0 Allergy status to penicillin
CPT/HCPCS: 36415; 71275; 74174; 80053; 81025; 84484; 85025; 93005; Q9967; Z7502; 99284

== ENCOUNTER 2020-01-25 17:39 | Emergency (ER) | payer MEDICAID ==
[~2020-01-25] VITALS: Ht 177.8 cm; Wt 113.4 kg
[2020-01-25] MEDS ORDERED: ASPIRIN81 MG ORAL (18:14)
[2020-01-25 18:16] VITALS: BP 135/85
--- NOTE | 2020-01-25 18:39 | NUR ---
ED Nurse Note: Pt walked in from home, walks with a steady gait, breathig is even and unlabored. Pt co pain x4 day bilateral ear pain. No compliants of dizziness, nausea or discharge from ears.
--- NOTE | 2020-01-25 18:46 | Emergency Room Report ---
History of Present Illness General Chief Complaint: Earache Source: Patient, Medical Record Present Illness HPI 29-year-old female with a history of recurrent otitis media here complaining of 2 days of bilateral earache with 1 day of bilateral tonsillar swelling. Denies any fever and chills, cough and congestion. Immediately request for something stronger for pain. Patient has been seen here before for otitis media has not yet follow-up with ear nose throat doctor. Denies chest pain, shortness of breath, headache and dizziness. Denies hearing loss, vertigo, nausea vomiting. Denies . 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 Patient History Past Medical History: see triage record Past Surgical History: none Pertinent Family History: none Last Menstrual Period: 01/22/20 Now: No Immunizations: UTD Reviewed Nursing Documentation: PMH: Agreed; PSxH: Agreed Nursing Documentation-PMH Past Medical History: No History, Except For Hx Cardiac Problems: No - Ectopic July 2015 Hx Cancer: No Hx Gastrointestinal Problems: No Hx Neurological Problems: No Review of Systems All Other Systems: negative except mentioned in HPI Physical Exam Vital Signs Date Time Temp Pulse Resp B/P (MAP) Pulse Ox O2 Delivery O2 Flow Rate FiO2 01/25/20 18:06 98.2 77 16 133/83 (100) 95 Room Air Sp02 EP Interpretation: reviewed, normal General Appearance: no apparent distress, alert, GCS 15, non-toxic Head: normocephalic, atraumatic Eyes: bilateral eye normal inspection, bilateral eye PERRL ENT: tonsillar swelling, pharyngeal erythema, other - Bilateral TM bulging and erythema Neck: supple, other - Bilateral anterior cervical lymphadenopathy Respiratory: chest non-tender, lungs clear, normal breath sounds, speaking full sentences Cardiovascular #1: regular rate, rhythm, no edema Cardiovascular #2: 2+ carotid (R), 2+ carotid (L), 2+ radial (R), 2+ radial (L), 2+ dorsalis pedis (R), 2+ dorsalis pedis (L) Gastrointestinal: normal bowel sounds, non tender, soft, non-distended, no guarding, no rebound Rectal: deferred Musculoskeletal: back normal Neurologic: alert, motor strength/tone normal, oriented x3, sensory intact, responsive, speech normal Psychiatric: judgement/insight normal, memory normal, mood/affect normal, no suicidal/homicidal ideation Skin: no rash Lymphatic: adenopathy - Bilateral anterior cervical lymphadenopathy Medical Decision Making PA Attestation All diagnoses and treatment plans were reviewed and discussed with my supervising physician Dr. Corrales Diagnostic Impression: Primary Impression: Otitis media Additional Impression: Tonsillitis ER Course 29-year-old female with a history of recurrent otitis media here complaining of 2 days of bilateral earache with 1 day of bilateral tonsillar swelling. Denies any fever and chills, cough and congestion. Immediately request for something stronger for pain. Patient has been seen here before for otitis media has not yet follow-up with ear nose throat doctor. Denies chest pain, shortness of breath, headache and dizziness. Denies hearing loss, vertigo, nausea vomiting. Denies . Ddx considered but are not limited to: strep pharyngitis, URI, tonsillitis, peritonsillar abscess, influneza, tonsillitis, otitis media, otitis externa, coronavirus Vital signs: are WNL, pt. is afebrile H&PE are most consistent with: Otitis media, tonsillitis ORDERS: Levaquin, ibuprofen 800, prednisone ED INTERVENTIONS: None required at this time. Advised patient to follow-up with primary doctor and ENT, I did not find any narcotics necessary for otitis media at this time especially the patient kept asking for something very strong for pain. Cures history appears to be extensive. Advised patient to return symptoms. DISCHARGE: At this time pt. is stable for d/c to home. Will provide printed patient care instructions, and any necessary prescriptions. Care plan and follow up instructions have been discussed with the patient prior to discharge. Last Vital Signs Date Time Temp Pulse Resp B/P (MAP) Pulse Ox O2 Delivery O2 Flow Rate FiO2 01/25/20 18:06 98.2 77 16 133/83 (100) 95 Room Air Disposition: HOME, SELF-CARE Condition: Stable Scripts Prednisone* (PREDNISONE*) 20 Mg Tablet 40 MG ORAL DAILY for 5 Days, #10 TAB Prov: Higinio Oseguera 01/25/20 Ibuprofen (Ibu) 800 Mg Tablet 800 MG PO TID, #30 TAB Prov: Higinio Oseguera 01/25/20 Levofloxacin* (LEVOFLOXACIN*) 750 Mg Tablet 750 MG ORAL DAILY for 7 Days, #7 TAB Prov: Higinio Oseguera 01/25/20 Referrals: [facility],REFERRING (PCP) Patient Instructions: Otitis Media, Adult, [id number], Tonsillitis, [id number] Additional Instructions: Take medication as directed, follow primary care provider, if worsening symptoms return to the emergency room Higinio Oseguera Jan 25, 2020 18:46
[2020-01-25] MEDS ORDERED: MEDROL DOSEPAK4 MG ORAL ×2 (18:48→18:58)
[2020-01-25] MEDS ORDERED: LEVOFLOXACIN750 MG ORAL ×2 (18:48→18:58)
[2020-01-25] MEDS ORDERED: IBU800 MG PO ×2 (18:48→18:58)
[2020-01-25] MEDS ORDERED: PREDNISONE20 MG ORAL (18:59)
[2020-01-25 19:03] VITALS: BP 135/85
--- NOTE | 2020-01-25 19:07 | NUR ---
ER DISCHARGE NOTE: Patient is cleared to be discharged per ERMD, pt is aox4, on room air, with stable vital signs. pt was given dc and prescription instructions, pt was able to verbalize understanding, pt id bandremoved. pt is able to ambulate with steady gait. pt took all belongings.
== END 2020-01-25 19:05 | disposition home or self-care (01) ==
LOC: EMR 18:05
DX: H66.93 Otitis media, unspecified, bilateral (principal); J03.90 Acute tonsillitis, unspecified; Z88.1 Allergy status to other antibiotic agents; Z88.0 Allergy status to penicillin
CPT/HCPCS: 99282

== ENCOUNTER 2020-02-01 18:46 | Emergency (ER) | payer MEDICAID ==
[~2020-02-01] VITALS: Ht 177.8 cm; Wt 113.4 kg
[~2020-02-01 18:46] MED LIST changes: +ASPIRIN81 MG ORAL; +IBU800 MG PO; +LEVOFLOXACIN750 MG ORAL; +MEDROL DOSEPAK4 MG ORAL
[2020-02-01 19:05] VITALS: BP 140/75
--- NOTE | 2020-02-01 19:05 | NUR ---
ED Nurse Note: Pt walked in from home c/o intermittent bilateral calf pain x 1 week. Pt denies injury. Pt also c/o right shoulder pain and right hand pain. AAOx4, verbally responsive. No SOB.
--- NOTE | 2020-02-01 19:19 | NUR ---
HAND-OFF: Report given to Keri RAJAN.
--- NOTE | 2020-02-01 19:35 | NUR ---
ED Nurse Note: US at bedside
--- NOTE | 2020-02-01 19:39 | Emergency Room Report ---
History of Present Illness General Chief Complaint: Pain Source: Patient Present Illness HPI 29 YO Female with hx of tobacco use and DVT. Presents to the ED C/O 5/10 in severity pain in the calf bilaterally. Pt. denies trauma or fall. She also reports intermittent pain/tightness in the right shoulder and hand. Pt. also reports recently having a palpable lump in the palm of the left hand which resolved spontaneously on its own. Pt. reports She takes ASA daily, and uses an albuterol inhaler as needed. Pt. reports needing to use inhaler on 3 occasions this week. She reports having onset of cough this am. She states she was tested for COVID-19 2 weeks ago and was negative. She denies fevers or chills. She denies CP or palpitations. Pt. denies dizziness, GRANADOS, photophobia or neck pain/stiffness. Pt. denies notable swelling in either lower extremities. She reports previous DVT was in the left LE behind the knee. She denies . Pt. reports that she quit smoking 1 month ago. 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 COVID-19 Screening: Negative COVID-19 COVID-19 Testing Source: at [facility] 2 weeks ago Patient History Past Medical History: see triage record Past Surgical History: none Pertinent Family History: none Social History: Reports: smoking Last Menstrual Period: 01/22 Now: No Reviewed Nursing Documentation: PMH: Agreed; PSxH: Agreed Nursing Documentation-PMH Past Medical History: No History, Except For Hx Cardiac Problems: No - Ectopic July 2015 Hx Cancer: No Hx Gastrointestinal Problems: No Hx Neurological Problems: No Review of Systems All Other Systems: negative except mentioned in HPI Physical Exam Vital Signs Date Time Temp Pulse Resp B/P (MAP) Pulse Ox O2 Delivery O2 Flow Rate FiO2 02/01/20 18:59 98.8 97 20 140/75 (96) 95 Room Air Sp02 EP Interpretation: reviewed, normal General Appearance: no apparent distress, alert, GCS 15, non-toxic Head: normocephalic, atraumatic Eyes: bilateral eye normal inspection, bilateral eye PERRL ENT: hearing grossly normal, normal voice Neck: full range of motion Respiratory: chest non-tender, lungs clear, normal breath sounds, no respiratory distress, no accessory muscle use, no wheezing, speaking full sentences Cardiovascular #1: regular rate, rhythm, no edema, normal capillary refill Musculoskeletal: back normal, normal range of motion, calf tenderness - posteriorly and bilaterally, no visible swelling/ edema or erythema, gait/station normal, tender - the thenar aspect of the left hand, no palpable mass, FROM, no paresthesia Neurologic: alert, motor strength/tone normal, oriented x3, sensory intact, responsive, speech normal, normal gait, grossly normal Psychiatric: judgement/insight normal Skin: no rash, normal color Medical Decision Making PA Attestation Dr. Leiva is my supervising Physician whom patient management has been discussed with. Diagnostic Impression: Primary Impression: Bilateral calf pain Additional Impression: Myalgia ER Course 29 YO Female with hx of tobacco use and DVT. Presents to the ED C/O 5/10 in severity pain in the calf bilaterally. Pt. denies trauma or fall. She also reports intermittent pain/tightness in the right shoulder and hand. Pt. also reports recently having a palpable lump in the palm of the left hand which resolved spontaneously on its own. Pt. reports She takes ASA daily, and uses an albuterol inhaler as needed. Pt. reports needing to use inhaler on 3 occasions this week. She reports having onset of cough this am. She states she was tested for COVID-19 2 weeks ago and was negative. She denies fevers or chills. She denies CP or palpitations. Pt. denies dizziness, GRANADOS, photophobia or neck pain/stiffness. Pt. denies notable swelling in either lower extremities. She reports previous DVT was in the left LE behind the knee. She denies . Pt. reports that she quit smoking 1 month ago. Ddx considered but are not limited to Cellulitis, DVT, varicose vein, PAD,Venous insufficiency Vital signs: are WNL, pt. is afebrile. H&PE are most consistent with need to r/o DVT. in pt. with hx of previous DVT and tobacco use. --Patient is nontoxic in appearance in no acute distress ambulating with a steady normal gait without need for assistance. No evidence of respiratory distress or increased respiratory effort. ORDERS: - Venous Duplex US Bilateral Lower extremities: Negative for acute DVT ED INTERVENTIONS: None required at this time. -I do not identify an emergent condition at this time. With current presenta tion, pt. is stable for close outpatient follow up and conservative treatment. D/w pt. to return promptly to ED with worsening or new symptoms.- Pt. verbalizes' understanding and agreement with proposed treatment plan. DISCHARGE: At this time pt. is stable for d/c to home. Will provide printed patient care instructions, and any necessary prescriptions. Care plan and follow up instructions have been discussed with the patient prior to discharge. CT/MRI/US Diagnostic Results CT/MRI/US Diagnostic Results : Imaging Test Ordered: Bilateral venous duplex ultrasound Impression " Negative for acute DVT ." --Per official radiology report- Please see report for specific details. Last Vital Signs Date Time Temp Pulse Resp B/P (MAP) Pulse Ox O2 Delivery O2 Flow Rate FiO2 02/01/20 19:05 98.8 97 20 140/75 95 Room Air Disposition: HOME, SELF-CARE Condition: Stable Signed Out To: Dr. Leiva Scripts Methocarbamol* (ROBAXIN-500*) 500 Mg Tablet 500 MG ORAL TID PRN for For Pain, #15 TAB 0 Refills Prov: Josy Fierro 02/01/20 Patient Instructions: Muscle Pain, Adult Additional Instructions: ~ ~ An emergent medical condition has not been identified based on this patients presentation, exam and any necessary testing/imaging. The patient is determined to be stable for outpatient follow-up and management of symptoms by a primary care provider. Take medications as directed. Do not drink alcohol, drive, or operate heavy machinery while taking Robaxin ( Muscle Relaxers) as this may cause drowsiness. Follow up with your Primary Care Provider in 3-5 days, even if your symptoms have resolved. Return sooner to ED if new symptoms occur, or current symptoms become worse. - Please note that this Emergency Department Report was dictated using [email or web address] branch manager technology software, occasionally this can lead to erroneous entry secondary to interpretation by the dictation equipment. Josy Fierro Feb 01, 2020 19:39
--- NOTE | 2020-02-01 20:09 | Diagnostic Imaging Report ---
EXAM: US Duplex Bilateral Lower Extremities Veins CLINICAL HISTORY: PAIN TECHNIQUE: Real-time duplex ultrasound scan of the bilateral lower extremity veins integrating B-mode two-dimensional vascular structure, Doppler spectral analysis, color flow Doppler imaging and compression. COMPARISON: No previous studies. FINDINGS: Right deep veins: Imaging of the lower extremity deep venous systems bilaterally reveals no deep venous thrombosis including the common femoral veins, superficial femoral veins, the popliteal veins, and the calf veins. Right superficial veins: Unremarkable. No thrombus in the visualized right great saphenous vein. Left deep veins: See above. Left superficial veins: Unremarkable. No thrombus in the visualized left great saphenous vein. Soft tissues: Soft tissues are unremarkable. No popliteal cyst. IMPRESSION: No deep venous thrombosis either lower extremity deep venous system bilaterally.
[2020-02-01] MEDS ORDERED: ROBAXIN-500MG ORAL (20:23)
[2020-02-01 20:40] VITALS: BP 140/75
--- NOTE | 2020-02-01 20:40 | NUR ---
ER DISCHARGE NOTE: Patient is cleared to be discharged per ERMD, pt is aox4, on room air, with stable vital signs. pt was given dc and prescription instructions, pt was able to verbalize understanding, pt id band REMOVED. pt is able to ambulate with steady gait. pt took all belongings.
== END 2020-02-01 20:40 | disposition home or self-care (01) ==
LOC: EMR 19:22
DX: M79.662 Pain in left lower leg (principal); M79.661 Pain in right lower leg; M79.10 Myalgia, unspecified site; Z88.0 Allergy status to penicillin; Z86.718 Personal history of other venous thrombosis and embolism; Z79.82 Long term (current) use of aspirin; Z87.891 Personal history of nicotine dependence
CPT/HCPCS: 93970; Z7502; 99284

== ENCOUNTER 2020-03-22 11:01 | Emergency (ER) | payer MEDICAID ==
[~2020-03-22] VITALS: Ht 177.8 cm; Wt 113.4 kg
--- NOTE | 2020-03-22 11:51 | Emergency Room Report ---
History of Present Illness General Chief Complaint: Dyspnea/Respdistress Source: Patient (Alex Whitmore MD) Present Illness HPI Patient is a 29-year-old female presents for increased chest discomfort and shortness of breath. Prior history of deep venous thrombosis. Had recent tummy tuck procedure. Procedure was 10 days ago in the [facility]. She states that pain of the chest was unchanged by exertion. Intermittently changed with deep breaths. 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 COVID-19 Screening: Negative COVID-19 COVID-19 Testing Source: [facility] this week (Alex Whitmore MD) Patient History Past Medical History: see triage record Reviewed Nursing Documentation: PMH: Agreed; PSxH: Agreed (Alex Whitmore MD) Nursing Documentation-PMH Hx Cardiac Problems: No - Ectopic July 2015 Hx Cancer: No Hx Gastrointestinal Problems: No Hx Neurological Problems: No (Alex Whitmore MD) Review of Systems All Other Systems: negative except mentioned in HPI (Alex Whitmore MD) Physical Exam Vital Signs Date Time Temp Pulse Resp B/P (MAP) Pulse Ox O2 Delivery O2 Flow Rate FiO2 03/22/20 11:43 107 15 112/74 (87) 100 Room Air Sp02 EP Interpretation: reviewed, normal General Appearance: normal inspection, well appearing, alert, GCS 15 Head: atraumatic ENT: normal ENT inspection, hearing grossly normal, normal voice Neck: normal inspection, full range of motion, supple, no bony tend Respiratory: normal inspection, lungs clear, normal breath sounds, no respiratory distress, no retraction, no wheezing Cardiovascular #1: no edema, tachycardia Gastrointestinal: normal inspection, normal bowel sounds, non tender, soft, no guarding, no hernia, other - skin incisions without erythema Genitourinary: no CVA tenderness Musculoskeletal: normal inspection, back normal, normal range of motion Neurologic: alert, motor strength/tone normal, clinical laboratory manager III-XII nml as tested, oriented x3, responsive, speech normal, normal inspection Psychiatric: normal inspection, judgement/insight normal, mood/affect normal Skin: other (Alex Whitmore MD) Medical Decision Making Diagnostic Impression: Primary Impression: Chest pain Additional Impressions: Postoperative state Leukocytosis ER Course Patient presents for chest pain. Differential diagnosis include was not limited to pulmonary embolism, pneumonia, anemia, cellulitis among others. Because of complexity of patient's case laboratory tests and imaging studies were ordered. Patient had prior history of deep venous thrombosis and is currently taking aspirin. She had previously had surgical procedure. Patient was noted to be initially tachycardic.Patient's wound does not appear to have any definite infection. Patient does appear to have some evidence of anemia. CT of the abdomen pelvis and chest was ordered due to patient's high risk for pulmonary embolism. Patient's troponin was negative. White count was mildly elevated consistent with possible postoperative complication. There is no definite dr demarco from the patient surgical wounds Patient was endorsed to Dr. Wallis pending CT imaging studies. Labs Test 03/22/20 12:00 White Blood Count 14.3 K/UL (4.8-10.8) Red Blood Count 3.19 M/UL (4.20-5.40) Hemoglobin 9.2 G/DL (12.0-16.0) Hematocrit 29.3 % (37.0-47.0) Mean Corpuscular Volume 92 FL (80-99) Mean Corpuscular Hemoglobin 29.0 PG (27.0-31.0) Mean Corpuscular Hemoglobin Concent 31.5 G/DL (32.0-36.0) Red Cell Distribution Width 12.7 % (11.6-14.8) Platelet Count 485 K/UL (150-450) Mean Platelet Volume 4.5 FL (6.5-10.1) Neutrophils (%) (Auto) 72.4 % (45.0-75.0) Lymphocytes (%) (Auto) 17.6 % (20.0-45.0) Monocytes (%) (Auto) 4.4 % (1.0-10.0) Eosinophils (%) (Auto) 4.4 % (0.0-3.0) Basophils (%) (Auto) 1.2 % (0.0-2.0) Sodium Level 138 MMOL/L (136-145) Potassium Level 4.0 MMOL/L (3.5-5.1) Chloride Level 105 MMOL/L (98-107) Carbon Dioxide Level 26 MMOL/L (21-32) Anion Gap 7 mmol/L (5-15) Blood Urea Nitrogen 6 mg/dL (7-18) Creatinine 0.7 MG/DL (0.55-1.30) Estimat Glomerular Filtration Rate > 60 mL/min (>60) Glucose Level 92 MG/DL (74-106) Calcium Level 8.8 MG/DL (8.5-10.1) Total Bilirubin 0.2 MG/DL (0.2-1.0) Aspartate Amino Transf (AST/SGOT) 26 U/L (15-37) Alanine Aminotransferase (ALT/SGPT) 17 U/L (12-78) Alkaline Phosphatase 66 U/L (46-116) Troponin I 0.000 ng/mL (0.000-0.056) C-Reactive Protein, Quantitative 16.7 mg/dL (0.00-0.90) Total Protein 6.9 G/DL (6.4-8.2) Albumin 2.1 G/DL (3.4-5.0) Globulin 4.8 g/dL Albumin/Globulin Ratio 0.4 (1.0-2.7) Lipase 118 U/L (73-393) (Alex Whitmore MD) ER Course Patient signed out by prior attending pending CT chest abdomen and pelvis. CTA chest demonstrates no evidence for pulmonary embolism. CT abdomen pelvis demonstrates no acute intra-abdominal pathology only postsurgical changes. Patient's FRANCIS drain is not working. While awaiting transfer patient states that she would like to sign out AMA. The patient is of adult age and has sound mind with no evidence of altered mental status suggesting metabolic or infections etiologies. I explained in layman's terms the risk of leaving against medical advise including and significant comorbidity. The patient was given reasonable options. This was explained in front of the patient and the bedside nurse Viktoria RAJAN. The AMA for was signed and witnessed by a nurse and the patient. (Angi Wallis M.D.) EKG Diagnostic Results Rate: tachycardiac Rhythm: NSR ST Segments: other (Alex Whitmore MD) Last Vital Signs Date Time Temp Pulse Resp B/P (MAP) Pulse Ox O2 Delivery O2 Flow Rate FiO2 03/22/20 11:43 107 15 112/74 (87) 100 Room Air Status: unchanged (Alex Whitmore MD) Disposition: AGAINST MEDICAL ADVICE Condition: Stable Scripts Oxycodone/Acetaminophen 5-325* (PERCOCET 5-325 MG TABLET*) 1 Each Tablet 1 TAB ORAL Q6H PRN for For Pain, #12 TAB 0 Refills Prov: Angi Wallis M.D. 03/22/20 [facility],REFERRING (PCP) Alex Whitmore MD Mar 22, 2020 11:51 Angi Wallis M.D. Mar 22, 2020 17:35
--- NOTE | 2020-03-22 12:00 | NUR ---
ED Nurse Note:pt. came from home with c/o chest pain and post-op complications from tommytuck done 8 days ago in [place]
[2020-03-22 12:12] LABS: BASOPHILS % (AUTO) 1.2 % (0.0-2.0); EOSINOPHILS % (AUTO) 4.4 % (0.0-3.0); HEMATOCRIT 29.3 % (37.0-47.0); HEMOGLOBIN 9.2 G/DL (12.0-16.0); LYMPHOCYTES % (AUTO) 17.6 % (20.0-45.0); MEAN CORPUSCULAR VOLUME 92 FL (80-99); MONOCYTES % (AUTO) 4.4 % (1.0-10.0); NEUTROPHILS % (AUTO) 72.4 % (45.0-75.0); PLATELET COUNT 485 K/UL (150-450); RED BLOOD COUNT 3.19 M/UL (4.20-5.40); RED CELL DISTRIBUTION WIDTH 12.7 % (11.6-14.8); WHITE BLOOD COUNT 14.3 K/UL (4.8-10.8)
[2020-03-22 12:13] VITALS: BP 112/74
--- NOTE | 2020-03-22 12:40 | NUR ---
ED Nurse Note: US @ bedside
--- NOTE | 2020-03-22 12:54 | Diagnostic Imaging Report ---
Procedure: XRAY Chest 1v Reason for study: Reason For Exam: SOB Comparison films: 02/28/2017. FINDINGS: A single one view chest is obtained. Vascularity is normal. The lung moraes are clear bilaterally. Cardiac and mediastinal silhouette are within normal limits. CP angles are sharp. The bony thorax appear unremarkable. IMPRESSION: NO ACUTE CARDIOPULMONARY DISEASE.
[2020-03-22 12:56] LABS: ALANINE AMINOTRANSFERASE 17 U/L (12-78); ALBUMIN 2.1 G/DL (3.4-5.0); ALBUMIN/GLOBULIN RATIO 0.4 (1.0-2.7); ALKALINE PHOSPHATASE 66 U/L (46-116); ANION GAP 7 mmol/L (5-15); ASPARTATE AMINO TRANSFERASE 26 U/L (15-37); BILIRUBIN,TOTAL 0.2 MG/DL (0.2-1.0); BLOOD UREA NITROGEN 6 mg/dL (7-18); CALCIUM 8.8 MG/DL (8.5-10.1); CARBON DIOXIDE 26 MMOL/L (21-32); CHLORIDE 105 MMOL/L (98-107); CREATININE 0.7 MG/DL (0.55-1.30); SODIUM 138 MMOL/L (136-145)
--- NOTE | 2020-03-22 13:20 | NUR ---
ED Nurse Note:covid swab sent to labs, given iv fluids
[2020-03-22 14:42] VITALS: BP 107/75
[2020-03-22] MEDS ORDERED: Omnipaque-300 100ml vial INJ PRN (15:15)
--- NOTE | 2020-03-22 16:37 | Diagnostic Imaging Report ---
EXAM: CT CTA Chest Abd/Pel w Contrast CLINICAL HISTORY: Chest discomfort and shortness of breath. Also abdominal pain with recent tummy tuck procedure. TECHNIQUE: CT angiogram of the chest, abdomen and pelvis performed with IV contrast. 2-D and 3-D reformations are generated. All CT scans at this facility are performed using dose modulation techniques as appropriate to a performed exam including the following: automated exposure control with adjustment of the mA and/or kV according to patient size. RADIATION DOSE: CTDIvol: 103.4 mGy DLP: 1033.5 mGy-cm Dose information generated by the CT scanner is available in PACS. COMPARISON: 11/18/2019 FINDINGS: The thoracic aorta is normal in caliber. No significant stenosis, aneurysm, intimal flap or dissection noted. The study is not tailored for the evaluation of pulmonary vascularity but the visualized main pulmonary arteries appear unremarkable to the extent visualized. Abdominal aorta is normal in caliber and shows normal tapering. Visualized main visceral branches appear unremarkable. The iliac vessels also normal in course and caliber with normal opacification. Lungs appear clear. Major visceral organs appear unremarkable. Multifocal subcutaneous soft tissue air lucencies and induration noted related to the patient's recent "tummy tuck" procedure. There are drainage catheters noted across the lower back and also across the anterior lower abdomen. IMPRESSION: SUPERFICIAL POSTOPERATIVE CHANGES IN THE ABDOMINAL PELVIC MALDONADO RELATED TO THE PATIENT'S RECENT SURGERY. OTHERWISE NO SIGN OF ACUTE VASCULAR ABNORMALITY OF THE CHEST, ABDOMEN AND PELVIS.
[2020-03-22] MEDS ORDERED: PERCOCET 5-3251 EACH ORAL (17:33)
[2020-03-22 17:40] VITALS: BP 109/74
[2020-03-22 17:45] VITALS: BP 109/74
[2020-03-22] MEDS ORDERED: HYDROcodone/Acetamin 5/325 tab ORAL ONE (17:45)
--- NOTE | 2020-03-22 17:45 | NUR ---
AMA:ER MD was notified, pt. signed AMA form, abdominal dressing was chanched per pt.'s request, she went home with all personal belongings SEE AMA FORM.
== END 2020-03-22 17:54 | disposition left against medical advice (07) ==
LOC: EMR 11:48 → EDBEDREQ 13:41 → EMR 17:54
DX: R07.9 Chest pain, unspecified (principal); D64.9 Anemia, unspecified; Z88.1 Allergy status to other antibiotic agents; Z88.0 Allergy status to penicillin; Z86.718 Personal history of other venous thrombosis and embolism; Z79.82 Long term (current) use of aspirin; Z53.29 Procedure and treatment not carried out because of patient's decision for other reasons
CPT/HCPCS: 36415; 71045; 71275; 74175; 80053; 81025; 83690; 84484; 84703; 85025; 86140; 86850; 86900; 86901; 93005; 93970; 96360; Q9965; U0002; Z7502; 99284

== ENCOUNTER 2020-05-12 18:07 | Emergency (ER) | payer MEDICAID ==
[~2020-05-12] VITALS: Ht 180.3 cm; Wt 113.4 kg
[~2020-05-12 18:07] MED LIST changes: +PERCOCET 5-3251 EACH ORAL
--- NOTE | 2020-05-12 18:25 | Emergency Room Report ---
History of Present Illness General Chief Complaint: Chest pain Source: Patient Present Illness HPI Disclaimer: Please note that this report is being documented using DRAG[employer] technology. This can lead to erroneous entry secondary to incorrect interpretation by the dictating instrument. HPI: 29-year-old female history of DVT presents for evaluation of chest pain. She reports right-sided intermittent chest pain that is nonexertional. Symptoms present for several months. Sometimes feels like a sharp pain other times and itching, other times a pinching sensation. Does not appear to be related to exercise or rest. Denies shortness of breath or palpitations. Patient takes a baby aspirin daily for DVTs but is no longer anticoagulated. She was seen in March of this emergency department where CTA was of the torso was performed showing no PE. Followed up with PMD but has not yet seen a sider mechanic. Otherwise denies fever or chills. Denies shortness of breath, cough, nausea, vomiting, diarrhea or other symptoms. PMH: Obesity, DVT PSH: Tummy tuck procedure Allergies: Penicillin Social Hx: Reviewed Allergies: Coded Allergies: AMOXICILLIN (Verified Allergy, Unknown, 12/17/18) PENICILLINS (Verified Allergy, Unknown, 06/09/16) COVID-19 Screening Contact w/high risk pt: No Recent Travel to affected area: No Experienced COVID-19 symptoms?: No Nursing Documentation-PMH Hx Cardiac Problems: No - Ectopic July 2015 Hx Cancer: No Hx Gastrointestinal Problems: No Hx Neurological Problems: No Review of Systems All Other Systems: negative except mentioned in HPI Physical Exam General: Awake and alert, no acute distress HEENT: NC/AT. EOMI. Cardiovascular: RRR. S1 and S2 normal. No murmur appreciated Resp: Normal work of breathing. No cough, wheezing or crackles appreciated Abdomen: Abdomen is soft, nondistended. Nontender Skin: Intact. No abrasions, laceration or rash over the exposed skin MSK: Normal tone and bulk. Moving all extremities. No obvious deformity. Neuro: Awake and alert. Mentating appropriately. Medical Decision Making Diagnostic Impression: Primary Impression: Chest pain ER Course 29-year-old female history of DVT presents for evaluation of several months intermittent chest pain. Differential includes was not limited to musculoskeletal chest pain, palpitations, ACS, arrhythmia, PE, pneumonia, bronchitis, GERD, esophagitis, muscle spasm among others. EKG, chest x-ray, labs including troponin and D-dimer obtained. Patient cannot be PERC out due to prior history of DVT though she is low risk by Wells criteria. EKG shows Q waves in the inferior leads but otherwise normal sinus rhythm without acute ST segment changes. This EKG is unchanged from previous EKG most recently the one on 03/22/2020. CBC, chemistry and troponin within normal limits. D-dimer returned elevated. A CTA was repeated and no large emboli were noted though timing was suboptimal of the contrast and therefore patient will need further follow-up with her PMD. Clinically, she has no signs of significant embolus and no clinical signs of a DVT in the lower extremities. Copies of labs and imaging report provided to patient. Discussed with her how she should have a cardiology evaluation scheduled through her PMD. Instructed to return with new or worsening symptoms. She understands and agrees with the treatment plan. Laboratory Tests Test 05/12/20 18:31 White Blood Count 7.7 K/UL (4.8-10.8) Red Blood Count 4.98 M/UL (4.20-5.40) Hemoglobin 12.7 G/DL (12.0-16.0) Hematocrit 41.5 % (37.0-47.0) Mean Corpuscular Volume 83 FL (80-99) Mean Corpuscular Hemoglobin 25.6 PG (27.0-31.0) L Mean Corpuscular Hemoglobin Concent 30.6 G/DL (32.0-36.0) L Red Cell Distribution Width 16.4 % (11.6-14.8) H Platelet Count 313 K/UL (150-450) Mean Platelet Volume 6.2 FL (6.5-10.1) L Neutrophils (%) (Auto) 40.7 % (45.0-75.0) L Lymphocytes (%) (Auto) 44.7 % (20.0-45.0) Monocytes (%) (Auto) 5.9 % (1.0-10.0) Eosinophils (%) (Auto) 7.4 % (0.0-3.0) H Basophils (%) (Auto) 1.3 % (0.0-2.0) D-Dimer 1.84 mg/L FEU (0.00-0.49) H Sodium Level 140 MMOL/L (136-145) Potassium Level 3.9 MMOL/L (3.5-5.1) Chloride Level 105 MMOL/L (98-107) Carbon Dioxide Level 25 MMOL/L (21-32) Anion Gap 10 mmol/L (5-15) Blood Urea Nitrogen 13 mg/dL (7-18) Creatinine 0.9 MG/DL (0.55-1.30) Estimated Glomerular Filtration Rate > 60 mL/min (>60) Glucose Level 116 MG/DL (74-106) H Calcium Level 9.4 MG/DL (8.5-10.1) Total Bilirubin 0.2 MG/DL (0.2-1.0) Aspartate Amino Transferase (AST) 23 U/L (15-37) Alanine Aminotransferase (ALT) 25 U/L (12-78) Alkaline Phosphatase 83 U/L (46-116) Troponin I 0.005 ng/mL (0.000-0.056) Total Protein 8.0 G/DL (6.4-8.2) Albumin 3.6 G/DL (3.4-5.0) Globulin 4.4 g/dL Albumin/Globulin Ratio 0.8 (1.0-2.7) L EKG Diagnostic Results Troponin ordered: Yes When was troponin ordered?: May 12, 2020 EKG Time: 18:22 Rate: normal Rhythm: NSR ST Segments: no acute changes Other Impression Sinus rhythm, normal axis, normal intervals, no ST segment changes. Q waves in inferior leads may represent prior ischemia but no obvious acute ischemia on this EKG Rhythm Strip Diag. Results Rhythm Strip Time: 18:22 EP Interpretation: yes Rate: 90 Rhythm: NSR, no PVC's, no ectopy Chest X-Ray Diagnostic Results Chest X-Ray Diagnostic Results : Chest X-Ray Ordered: Yes # of Views/Limited/Complete: 1 View Indication: Chest Pain EP Interpretation: Yes Interpretation: no consolidation, no effusion, no pneumothorax, no acute cardiopulmonary disease Impression: No acute disease Electronically Signed by: Electronically signed by Dr. Kendall Leiva MD Disposition: HOME, SELF-CARE Condition: Stable Kendall Leiva MD May 12, 2020 18:25
--- NOTE | 2020-05-12 18:34 | NUR ---
pt arrives tO ER with complaints of chest pain x 4 days. pt describes pain as intermittent shooting pain that is non radiating. pt denies previous cardiac history. pt states history of back injury. pt placed on gaming cage cashier at this time.
[2020-05-12 18:35] VITALS: BP 136/81
--- NOTE | 2020-05-12 18:53 | Diagnostic Imaging Report ---
EXAM: XR Chest, 1 View CLINICAL HISTORY: CP TECHNIQUE: Frontal view of the chest. COMPARISON: 03/22/2020 FINDINGS: Lungs: No significant abnormality. No consolidation. Pleural space: No significant abnormality. No pneumothorax. Heart: No significant abnormality. No cardiomegaly. Mediastinum: No significant abnormality. Bones/joints: No acute osseous abnormality. IMPRESSION: No acute cardiopulmonary process.
[2020-05-12 19:11] LABS: BASOPHILS % (AUTO) 1.3 % (0.0-2.0); EOSINOPHILS % (AUTO) 7.4 % (0.0-3.0); HEMATOCRIT 41.5 % (37.0-47.0); HEMOGLOBIN 12.7 G/DL (12.0-16.0); LYMPHOCYTES % (AUTO) 44.7 % (20.0-45.0); MEAN CORPUSCULAR VOLUME 83 FL (80-99); MONOCYTES % (AUTO) 5.9 % (1.0-10.0); NEUTROPHILS % (AUTO) 40.7 % (45.0-75.0); PLATELET COUNT 313 K/UL (150-450); RED BLOOD COUNT 4.98 M/UL (4.20-5.40); RED CELL DISTRIBUTION WIDTH 16.4 % (11.6-14.8); WHITE BLOOD COUNT 7.7 K/UL (4.8-10.8)
[2020-05-12 19:18] LABS: ALANINE AMINOTRANSFERASE 25 U/L (12-78); ALBUMIN 3.6 G/DL (3.4-5.0); ALBUMIN/GLOBULIN RATIO 0.8 (1.0-2.7); ALKALINE PHOSPHATASE 83 U/L (46-116); ANION GAP 10 mmol/L (5-15); ASPARTATE AMINO TRANSFERASE 23 U/L (15-37); BILIRUBIN,TOTAL 0.2 MG/DL (0.2-1.0); BLOOD UREA NITROGEN 13 mg/dL (7-18); CALCIUM 9.4 MG/DL (8.5-10.1); CARBON DIOXIDE 25 MMOL/L (21-32); CHLORIDE 105 MMOL/L (98-107); CREATININE 0.9 MG/DL (0.55-1.30); POTASSIUM 3.9 MMOL/L (3.5-5.1); SODIUM 140 MMOL/L (136-145)
--- NOTE | 2020-05-12 19:30 | NUR ---
ED Nurse Note: Recieved report from am nurse to resume care, pt in bed awake, alert and oriented x 4, here with c/o chest pain x 5 months intermittently, epigastric area with bloating no sob or labored breathing ntoed, has patent saline lock to left ac area, intact and patent, pt resting quietly, will resume care as waiting for lab results. pt conversing on cell phone, nad noted at this time.
[2020-05-12 20:00] VITALS: BP 131/77
--- NOTE | 2020-05-12 20:43 | NUR ---
ED Nurse Note: Pt being taken to imaging for CTA, form signed, IV site patent, no sob or labored breathing, nad or changes noted, will resume care when pt returns to department.
--- NOTE | 2020-05-12 21:19 | Diagnostic Imaging Report ---
EXAM: CT Angiography Chest With Intravenous Contrast CLINICAL HISTORY: PE TECHNIQUE: Axial computed tomographic angiography images of the chest with intravenous contrast. CTDI is 45.6 mGy and DLP is 417.60 mGy-cm. One or more of the following dose reduction techniques were used: automated exposure control, adjustment of the mA and/or kV according to patient size, use of iterative reconstruction technique. MIP reconstructed images were created and reviewed. COMPARISON: 05/12/20202046 FINDINGS: Pulmonary arteries: Evaluation of the pulmonary arteries is significantly limited by timing of the IV contrast bolus. No large saddle embolus. Aorta: No acute findings. No thoracic aortic aneurysm. Lungs: Mild bilateral peribronchial thickening. No consolidation. No suspicious pulmonary nodules. Pleural space: No significant effusion. No pneumothorax. Heart: No cardiomegaly. No significant pericardial effusion. Bones/joints: No acute fracture. Soft tissues: No significant abnormality. Lymph nodes: No significant abnormality. IMPRESSION: Evaluation of the pulmonary arteries is significantly limited by timing of the IV contrast bolus. No large saddle embolus.
[2020-05-12 21:42] VITALS: BP 131/77
== END 2020-05-12 21:25 | disposition home or self-care (01) ==
LOC: EMR 18:28
DX: R07.9 Chest pain, unspecified (principal); Z88.0 Allergy status to penicillin; Z88.1 Allergy status to other antibiotic agents; E66.9 Obesity, unspecified; Z68.34 Body mass index [BMI] 34.0-34.9, adult
CPT/HCPCS: 36415; 71045; 71275; 80053; 84484; 85025; 85379; 93005; Q9967; Z7502; 99284